=== PATIENT | male | born 1960 | race Caucasian/White ===

== ENCOUNTER 2022-08-22 12:57 | Outpatient (REF) | payer MEDICARE, SELFPAY ==
[2022-08-22 13:12] LABS: MANUAL DIFF FLAG NO
[2022-08-22 13:59] LABS: Basophils Absolute Auto 0.1 X10*3/uL (0.0-0.2); Basophils Percent Auto 0.9 % (0-2); Eosinophils Absolute Auto 0.4 X10*3/uL (0.0-0.4); Eosinophils Percent Auto 4.1 % (0-4); Hematocrit 41.4 % (42.0-52.0); Hemoglobin 13.4 g/dl (14.0-18.0); Imm Gran Abs Auto 0.04 X10*3/uL (0.00-0.03); Imm Gran Pct Auto 0.5 % (0.0-0.4); Lymphocytes Absolute Auto 2.2 X10*3/uL (1.2-4.9); Lymphocytes Percent Auto 25.6 % (20-40); Mean Corpuscular HGB Conc 32.4 g/dl (31.0-36.0); Mean Corpuscular Hemoglobin 27.2 pg (27.0-33.0); Mean Corpuscular Volume 84.1 fL (80.0-98.0); Mean Platelet Volume 9.9 fL (9.4-12.4); Monocytes Absolute Auto 0.5 X10*3/uL (0.1-1.2); Monocytes Percent Auto 6.1 % (2-11); Neutrophils Absolute Auto 5.3 x10*3/uL (2.0-8.3); Neutrophils Percent Auto 62.8 % (45-73); Platelet Count 271 X10*3/uL (160-400); Red Blood Count 4.92 X10*6/uL (4.60-5.80); Red Cell Distribution Width 14.9 % (11.0-16.0); White Blood Count 8.5 X10*3/uL (4.8-10.8)
[2022-08-22 14:18] LABS: Estimated Average Glucose 220 mg/dL; Hemoglobin A1c % 9.3 %
[2022-08-22 14:47] LABS: Creatinine Urine 100.11 mg/dL
[2022-08-22 14:55] LABS: Alanine Aminotransferase 11 U/L (0-40); Albumin Level 3.1 g/dL (3.5-5.0); Alkaline Phosphatase 97 U/L (39-117); Anion Gap 12 (12-20); Aspartate Amino Transferase 13 U/L (5-37); Bilirubin Total 0.4 mg/dL (0.0-1.0); Blood Urea Nitrogen 22 mg/dL (9-16); Calcium 8.5 mg/dL (8.4-10.2); Carbon Dioxide 25 mmol/L (22-29); Chloride 106 mmol/L (96-108); Cholesterol 150 mg/dL; Estimated Glomerular Filt Rate 27; Glucose Fasting 153 mg/dL (60-99); HDL Cholesterol 30 mg/dL; LDL Cholesterol Calculated 101 mg/dl; Potassium 4.1 mmol/L (3.3-5.1); Sodium 139 mmol/L (135-145); Total Protein 5.9 g/dL (6.5-8.0); Triglycerides 99 mg/dL
[2022-08-22 15:00] LABS: Microalbumin Urine > 2000.0 mg/L
[2022-08-22 15:05] LABS: Prostate Specific Antigen 0.27 ng/mL (<0.05-4.0)
== END 2022-08-22 12:58 | disposition home or self-care (01) ==
LOC: HO.LAB 12:57
PROVIDERS: PCP Internal Medicine; Visit Provider Nurse Practitioner Family
DX: E11.65 Type 2 diabetes mellitus with hyperglycemia (principal); Z12.5 Encounter for screening for malignant neoplasm of prostate
CPT/HCPCS: 36415; 80053; 80061; 82043; 83036; 84153; 84443; 85025

== ENCOUNTER 2022-10-08 12:27 | Outpatient (REF) | payer MEDICARE, SELFPAY ==
--- NOTE | ~2022-10-08 | MR_ITS ---
EXAMINATION: MR PELVIS WITHOUT CONTRAST CLINICAL INFORMATION: Lytic lesion. COMPARISON: Outside CT abdomen/pelvis dated 08/20/2022. TECHNIQUE: Multisequence MR imaging of the pelvis was obtained without contrast on a high-field strength scanner. Localizing images as well as coronal T1 and coronal STIR images were obtained. Examination was terminated prematurely due to claustrophobia. FINDINGS: Evaluation significantly limited due to premature termination and limited imaging. BONE: Previously seen lytic foci on the prior CT are difficult to visualize on the provided MR images. There is a single focus within the posterior aspect of the left iliac adjacent to the sacroiliac joint which is similar in size and demonstrates normal fat signal on T1 and STIR imaging. No marrow edema or increased fluid signal to suggest acute osseous injury. No stress reaction, fracture, or avascular necrosis. Severe right and [id number] left hip osteoarthritis. Multilevel degenerative disc disease and facet arthropathy partially visualized within the lumbar spine. MUSCLES/TENDONS: Grossly unremarkable. INTRAPELVIC STRUCTURES: Grossly unremarkable. SOFT TISSUES: No large soft tissue mass or fluid collection. MR/MR pelvis wo con IMPRESSION: Evaluation significantly limited due to premature termination and limited imaging. 1. Previously seen lytic foci on the prior CT are difficult to visualize on the provided MR images. There is a single focus within the posterior aspect of the left iliac adjacent to the sacroiliac joint which demonstrates normal fat signal. No marrow edema or increased fluid signal to suggest acute osseous injury. 2. Severe right and [id number] left hip osteoarthritis. 3. Multilevel degenerative disc disease and facet arthropathy partially visualized within the lumbar spine.
--- NOTE | ~2022-10-08 | XR_ITS ---
EXAMINATION: XR BILATERAL HIPS WITH AP PELVIS CLINICAL INFORMATION: Evaluate for lytic lesions COMPARISON: None available. TECHNIQUE: AP view of the pelvis and single views of each hip were obtained. FINDINGS: Evaluation is limited due to overlapping soft tissues. Severe degenerative changes of the bilateral hip joints, no evidence of fracture or dislocation. There is diffuse heterogeneous appearance of the osseous structures. Underlying lytic lesions cannot be excluded including a possible one in the inferior right pubic ramus measuring 3.3 cm. XR/XR hips BERTHA min 3V IMPRESSION: 1. Severe degenerative changes of the bilateral hip joints, no evidence of fracture or dislocation. 2. Diffuse heterogeneous appearance of the osseous structures. Underlying lytic lesions cannot be excluded including a possible one in the inferior right pubic ramus measuring 3.3 cm.
== END 2022-10-08 12:28 | disposition home or self-care (01) ==
LOC: HO.MRI 12:27
PROVIDERS: PCP Nurse Practitioner Family; Visit Provider Internal Medicine
DX: R93.5 Abnormal findings on diagnostic imaging of other abdominal regions, including retroperitoneum (principal)
CPT/HCPCS: 72195; 73522

== ENCOUNTER → 2022-11-03 12:53 | Outpatient (BNVA) | payer MEDICARE, SELFPAY | PROVIDERS: PCP Internal Medicine; Visit Provider Orthopaedic Surgery | DX: M54.16 Radiculopathy, lumbar region (principal); M16.0 Bilateral primary osteoarthritis of hip; M21.379 Foot drop, unspecified foot; E11.65 Type 2 diabetes mellitus with hyperglycemia | CPT/HCPCS: 99202 ==

== ENCOUNTER → 2022-11-25 14:48 | Outpatient (BNVA) | payer MEDICARE, SELFPAY | PROVIDERS: PCP Internal Medicine; Visit Provider Nurse Practitioner Family | DX: M21.379 Foot drop, unspecified foot (principal); M51.16 Intervertebral disc disorders with radiculopathy, lumbar region; M96.1 Postlaminectomy syndrome, not elsewhere classified; M16.0 Bilateral primary osteoarthritis of hip; G89.4 Chronic pain syndrome; E11.65 Type 2 diabetes mellitus with hyperglycemia; E11.40 Type 2 diabetes mellitus with diabetic neuropathy, unspecified; E11.22 Type 2 diabetes mellitus with diabetic chronic kidney disease; E11.21 Type 2 diabetes mellitus with diabetic nephropathy; N18.9 Chronic kidney disease, unspecified; G62.9 Polyneuropathy, unspecified; Z99.3 Dependence on wheelchair | CPT/HCPCS: 99202 ==

== ENCOUNTER 2023-08-31 12:40 | Outpatient (REF) | payer MEDICARE, SELFPAY ==
[2023-08-31 13:05] LABS: MANUAL DIFF FLAG NO
[2023-08-31 13:36] LABS: Basophils Absolute Auto 0.1 X10*3/uL (0.0-0.2); Basophils Percent Auto 1.1 % (0-2); Eosinophils Absolute Auto 0.5 X10*3/uL (0.0-0.4); Eosinophils Percent Auto 6.6 % (0-4); Hematocrit 39.4 % (42.0-52.0); Hemoglobin 13.2 g/dl (14.0-18.0); Imm Gran Abs Auto 0.03 X10*3/uL (0.00-0.03); Imm Gran Pct Auto 0.4 % (0.0-0.4); Immature Retic Fraction 4.2 % (2.3-13.4); Lymphocytes Absolute Auto 1.9 X10*3/uL (1.2-4.9); Lymphocytes Percent Auto 25.3 % (20-40); Mean Corpuscular HGB Conc 33.5 g/dl (31.0-36.0); Mean Corpuscular Hemoglobin 28.6 pg (27.0-33.0); Mean Corpuscular Volume 85.5 fL (80.0-98.0); Mean Platelet Volume 9.8 fL (9.4-12.4); Monocytes Absolute Auto 0.5 X10*3/uL (0.1-1.2); Monocytes Percent Auto 6.1 % (2-11); Neutrophils Absolute Auto 4.6 x10*3/uL (2.0-8.3); Neutrophils Percent Auto 60.5 % (45-73); Platelet Count 243 X10*3/uL (160-400); Red Blood Count 4.61 X10*6/uL (4.60-5.80); Red Cell Distribution Width 14.8 % (11.0-16.0); Retic HGB Equivalent 30.4 pg (30.0-35.0); Reticulocytes Absolute 0.044 X10*6/uL (0.026-0.095); White Blood Count 7.6 X10*3/uL (4.8-10.8)
[2023-08-31 14:21] LABS: Alanine Aminotransferase 9 U/L (0-40); Albumin Level 3.3 g/dL (3.5-5.0); Alkaline Phosphatase 113 U/L (39-117); Anion Gap 12 (12-20); Aspartate Amino Transferase 10 U/L (5-37); Bilirubin Total 0.4 mg/dL (0.0-1.0); Blood Urea Nitrogen 50 mg/dL (9-16); Calcium 8.9 mg/dL (8.4-10.2); Carbon Dioxide 24 mmol/L (22-29); Chloride 106 mmol/L (96-108); Cholesterol 170 mg/dL (<200); Estimated Glomerular Filt Rate 17; Glucose Random 113 mg/dL (60-115); HDL Cholesterol 33 mg/dL (>40); Iron 72 mcg/dL (45-160); LDL Cholesterol Calculated 115 mg/dL (<100); Percent Iron Saturation 45 % (15-50); Potassium 4.7 mmol/L (3.3-5.1); Sodium 137 mmol/L (135-145); Total Iron Binding Capacity 161 mcg/dL (228-428); Total Protein 7.1 g/dL (6.5-8.0); Triglycerides 112 mg/dL (<150); Unsaturated Iron Binding 89 ug/dL
[2023-08-31 14:40] LABS: Ferritin 186 ng/mL (20-250); Thyroid Stimulating Hormone 0.49 uIU/mL (0.32-4.0)
[2023-08-31 14:48] LABS: Folate 6.6 ng/mL (> or = 4.0); Prostate Specific Antigen Scr 0.33 ng/mL (<0.05-4.0); Vitamin B12 643 pg/mL (200-900)
[2023-08-31 14:51] LABS: Estimated Average Glucose 126 mg/dL
== END 2023-08-31 12:41 | disposition home or self-care (01) ==
LOC: HO.LAB 12:40
PROVIDERS: PCP Internal Medicine; Visit Provider Internal Medicine
DX: E11.65 Type 2 diabetes mellitus with hyperglycemia (principal); E78.00 Pure hypercholesterolemia, unspecified; E87.5 Hyperkalemia; Z12.5 Encounter for screening for malignant neoplasm of prostate
CPT/HCPCS: 36415; 80053; 80061; 82607; 82728; 82746; 83036; 83540; 84153; 84439; 84443; 85025; 85045

== ENCOUNTER 2023-09-09 14:22 | Outpatient (AMB) | payer MEDICARE, SELFPAY ==
--- NOTE | 2023-09-09 14:22 | MHC.PC.OV ---
Vital Signs 09/09/23 14:23 BP 153/87 H Comment BP taken at home Intake Visit Reasons: High BP, [employer] District Supervisor Required: No Allergies gabapentin Allergy (Unknown, Verified 04/29/23 11:47) confusion Medication List - Last Reconciled 09/09/23 by Jannette Ceja MD albuterol sulfate 90 mcg/actuation (ProAir HFA) 2 puffs inhalation Q4-6H PRN ammonium lactate 12% appl topical BID blood sugar diagnostic (FreeStyle Lite Strips) test daily blood-glucose meter (FreeStyle Lite Meter kit) test daily [CBD Gummy PO PRN] clotrimazole 1% 1 appl topical BID glipizide ER 5 mg PO DAILY lancets (FreeStyle Lancets) test daily nystatin 1 appl topical TID PRN omeprazole 20 mg PO DAILY [turkey tail mushroom PO .QD] Tobacco use date assessed: 12/09/22 Fall risk assessment: No Falls in past year Last assessed Fall Risk: 09/09/23 HPI High BP, HPI Details 63-year-old male smoker with a history of diabetes mellitus chronic kidney disease hypercholesterolemia post laminectomy syndrome having a footdrop coming in for follow-up through Telehealth. Last seen in November 2022 review of the notes patient did see the nurse practitioner in April 2023 for preoperative evaluation for cataract surgery. November 2022 noted ER visit for blood in the stool diagnosis of acute diarrhea and was treated with loperamide p.r.n. called EMT recently and was eating a bag of pistachios- felt light headed, R arm - slow motion and slurred noted BP high am 161/92 153/87 [facility] Medical History (Updated 09/09/23 @ 17:11 by Jannette Ceja MD) Wheelchair bound Lumbar radiculopathy Diabetic nephropathy Hypercholesterolemia Peripheral neuropathy Tobacco abuse Anxiety and depression Chronic kidney disease Type 2 diabetes mellitus with hyperglycemia Surgical History History of cervical spinal surgery History of lumbar surgery Family History Other Mental health disorder Substance use disorder Social History Household Members: Spouse and Family Housing: House Patient Tobacco Use Status: Current everyday Tobacco user Tobacco use type: Cigarette e-Cigarette/Vaping Use: Never Used Second Hand Smoke Exposure: No service: No Current occupational status: retired and disabled Cognitive needs: Yes (wheelchair) Hearing needs: No Vision needs: No Questionnaire Thrive Questionnaire Date Thrive assessed: 09/09/23 I am a: Patient What is your living situation today?: I have a steady place to live Within the past 12 months, did the food you bought not last and you didn't have the money to get more?: Never true Within the past 12 months, did you worry whether your food would run out before you got money to buy more?: Never true Do you have trouble paying for medicines?: No Do you have trouble getting transportation to medical appointments?: No Do you have trouble paying your heating and electricity bill?: No Do you have trouble taking care of your child, family member or friend?: No Do you have trouble with day-to-day activities such as bathing, preparing meals, shopping, managing finances, etc.?: No Are you currently unemployed and looking for a job?: No Are you interested in more education?: No Please select the resources that you would like help with: None THRIVE Score: 0 AUDIT C Alcohol Use Questionnaire (AUDIT-C) 1. How often do you have a drink containing alcohol?: Never 3. How often do you have six or more drinks on one occasion?: Never Total Score: 0 Score Reviewed/Action Taken: No ROXY-7 AMB Questionnaire ROXY-7 Date ROXY - 7 assessed: 09/09/23 Source: Developed by Drs. Jon Bone, Mary Morales, Josh Bond and colleagues, with an educational theodore from [email or web address]. Physical exam (Primary Care) Vital Signs: Last Vital Signs BP 153/87 H 09/09/23 14:23 Tobacco/Smoking Status: Tobacco use Status Tobacco use date assessed 12/09/22 09/09/23 14:25 Patient Tobacco Use Status Current everyday Tobacco 09/09/23 14:25 Tobacco use type Cigarette 09/09/23 14:25 e-Cigarette/Vaping Use Never Used 09/09/23 14:25 Thrive Assessment: Date of Thrive Assessment Date Thrive assessed 09/09/23 09/09/23 14:25 Telehealth Telehealth Location of provider rendering services: practice address Location of patient: address on file Patient Identification confirmed using: Name, : Yes Telehealth method: voice only (android ) Patient verbally consented to treatment: Yes Patient verbally consented to billing insurance company: Yes Patient informed of any privacy concerns related to visit: Yes Minutes spent on Phone/Video with Pt.: 25 Assessment and Plan Assessment & Plan (1) Type 2 diabetes mellitus with hyperglycemia: Code(s): E11.65 - Type 2 diabetes mellitus with hyperglycemia Qualifiers: Diabetes mellitus [facility] insulin use: without termite control service representative use Qualified Code(s): E11.65 - Type 2 diabetes mellitus with hyperglycemia Plan: Decrease the amount of carbohydrate intake, pasta, bread, rice and potatoes are all sugar and that is aside from all the sweet stuff, remember that fruits are good but they are Sweet also. Hemoglobin A1c goal of less than 6.5 patient is at goal on glipizide 5 mg once a day (2) Chronic kidney disease: Code(s): N18.9 - Chronic kidney disease, unspecified Qualifiers: Chronic kidney disease stage: unspecified stage Qualified Code(s): N18.9 - Chronic kidney disease, unspecified Plan: Patient has chronic kidney disease and advised to be followed up by Nephrology avoid NSAIDs keep well hydrated- has a schedule with Nephrology (3) Tobacco abuse: Code(s): Z72.0 - Tobacco use Plan: Patient is strongly advised to stop smoking! (4) Hypercholesterolemia: Code(s): E78.00 - Pure hypercholesterolemia, unspecified Plan: Avoid fried foods, chicken skin, eggs, butter margarine, pastries and meat. Be it pork or beef they have a lot of cholesterol LDL goal of less than 100 and triglyceride of less than 150 patient is not on any statin. Patient is advised to start on statins. Prescription sent (5) Post laminectomy syndrome: Code(s): M96.1 - Postlaminectomy syndrome, not elsewhere classified Plan: taking CBD gummy and helps (6) Hypertension: Code(s): I10 - Essential (primary) hypertension Plan: low saalt intake and will be seeing renal soon - [facility] nephrology Orders: Orders Lipid Panel 3 Months E11.65 - Type 2 diabetes mellitus with hyperglycemia, E78.00 - Pure hypercholesterolemia, unspecified Comprehensive Met. Panel 3 Months E11.65 - Type 2 diabetes mellitus with hyperglycemia Hemoglobin A1c 3 Months E11.65 - Type 2 diabetes mellitus with hyperglycemia Medications: New atorvastatin 10 mg PO DAILY 30 tabs 5RF E1165 - Type 2 diabetes mellitus with hyperglycemia Coding Level of Care Code Tele Est Pt Level 4 (30917) Diagnoses Type 2 diabetes mellitus with hyperglycemia, without long-term current use of insulin Diabetes mellitus [facility] insulin use: without termite control service representative use Chronic kidney disease, unspecified CKD stage N18.9 Chronic kidney disease stage: unspecified stage Tobacco abuse Z72.0 Hypercholesterolemia E78.00 Post laminectomy syndrome M96.1 Hypertension I10
[2023-09-09 14:23] VITALS: BP 153/87
== END 2023-09-09 17:44 | disposition home or self-care (01) ==
LOC: HO.HMGH 14:22
PROVIDERS: PCP Internal Medicine; Visit Provider Internal Medicine
DX: I12.9 Hypertensive chronic kidney disease with stage 1 through stage 4 chronic kidney disease, or unspecified chronic kidney disease (principal); E11.65 Type 2 diabetes mellitus with hyperglycemia; N18.9 Chronic kidney disease, unspecified; Z72.0 Tobacco use; E78.00 Pure hypercholesterolemia, unspecified; M96.1 Postlaminectomy syndrome, not elsewhere classified
CPT/HCPCS: 99443

== ENCOUNTER 2023-12-30 13:28 | Outpatient (AMB) | payer MEDICARE, SELFPAY ==
[2023-12-30 13:30] VITALS: BP 134/76; PULSE 77; O2SAT 97
--- NOTE | 2023-12-30 13:30 | A.OFFPC_ITS ---
Vital Signs 12/30/23 13:30 Height 6 ft 3 in BMI Reason not done Patient refused/unable BP 134/76 Blood Pressure Location Lt brachial Position Sitting Pulse 77 Pulse Source Pulse Oximeter Pulse Oximetry (%) 97 Oxygen Delivery Method Room Air Intake Visit Reasons: cataract surgery 01/10 and 01/24 [facility] Allergies gabapentin Allergy (Unknown, Verified 12/30/23 13:30) confusion Medication List - Last Reconciled 12/30/23 by Jannette Ceja MD albuterol sulfate 90 mcg/actuation (ProAir HFA) 2 puffs inhalation Q4-6H PRN ammonium lactate 12% appl topical BID atorvastatin 10 mg PO DAILY blood sugar diagnostic (FreeStyle Lite Strips) test daily blood-glucose meter (FreeStyle Lite Meter kit) test daily [CBD Gummy PO PRN] clotrimazole 1% 1 appl topical BID lancets (FreeStyle Lancets) test daily nystatin 1 appl topical TID PRN omeprazole 20 mg PO DAILY [turkey tail mushroom PO .QD] Tobacco use date assessed: 12/30/23 Fall risk assessment: No Falls in past year Last assessed Fall Risk: 12/30/23 Dental Screening Dental Screen Date: 12/30/23 Did you have a dental visit in the last 12 months?: No Did you have a dental problem in the last 6 months where you did not have access to dental care?: No Was dental information given to patient?: No HPI cataract surgery 01/10 and 01/24 [facility] HPI Details 63-year-old male smoker wheelchair born having diabetes mellitus chronic kidney disease hypercholesterolemia history of post laminectomy syndrome and hypertension. Patient is going to have cataract surgery. PAtient is wheelchair born and moves only to transfer from [facility] wheelchair. Patient has been referred to Nephrology but has not seen there lubrication equipment servicer 1st since having hard time going there. [facility] Medical History (Updated 12/30/23 @ 14:01 by Jannette Ceja MD) Wheelchair bound Lumbar radiculopathy Diabetic nephropathy Hypercholesterolemia Peripheral neuropathy Tobacco abuse Anxiety and depression Chronic kidney disease Type 2 diabetes mellitus with hyperglycemia Surgical History History of cervical spinal surgery History of lumbar surgery Family History Other Mental health disorder Substance use disorder Social History (Updated 12/30/23 @ 13:55 by Jannette Ceja MD) Household Members: Spouse and Family Housing: House Patient Tobacco Use Status: Current everyday Tobacco user Tobacco use type: Cigarette Cigarette Packs Per Day: 1 Years Smoked: 1969 e-Cigarette/Vaping Use: Never Used Second Hand Smoke Exposure: No service: No Current occupational status: retired and disabled Cognitive needs: Yes (wheelchair) Hearing needs: No Vision needs: No Questionnaire PHQ-9 Over the last 2 weeks, how often have you been bothered by any of the following problems? 1. Little interest or pleasure in doing things: not at all 2. Feeling down, depressed, or hopeless: not at all 3. Trouble falling or staying asleep, or sleeping too much: not at all 4. Feeling tired or having little energy: not at all 5. Poor appetite or overeating: not at all 6. Feeling bad about yourself - or that you are a failure or have let yourself or your family down: not at all 7. Trouble concentrating on things, such as reading the newspaper or watching television: not at all 8. Moving or speaking so slowly that other people could have noticed. Or the opposite - being so fidgety or restless that you have been moving around a lot more than usual: not at all 9. Thoughts that you would be better off or of hurting yourself in some way: not at all Total score: 0 Depression Screening Interpretation: Negative Depression Screening Done: Yes 66192 - PHQ-9 Billing: Yes Source: Developed by Drs. Jon Bone, Josh Koch and colleagues, with an educational theodore from [employer]. Thrive Questionnaire Date Thrive assessed: 09/09/23 AUDIT C Alcohol Use Questionnaire (AUDIT-C) 1. How often do you have a drink containing alcohol?: Never 3. How often do you have six or more drinks on one occasion?: Never Total Score: 0 Score Reviewed/Action Taken: No ROXY-7 AMB Questionnaire ROXY-7 Date ROXY - 7 assessed: 09/09/23 Source: Developed by Drs. Jon Bone, Josh Koch and colleagues, with an educational theodore from [employer]. Review of Systems Const Denies poor appetite and Denies weakness Eyes Denies no additional complaints ENT Reports Normal hearing present, Denies dizziness, Denies nasal congestion, Denies tinnitus and Denies sore throat Card Denies chest pain, Denies syncope, Denies rapid heart rate and Denies dyspnea Resp Denies cough and Denies dyspnea GI Denies change in stool character, Reports constipation, Denies diarrhea, Denies nausea and Denies vomiting Denies dysuria and Denies urinary frequency Neuro Reports Normal hearing present, Denies confusion, Denies dizziness, Denies syncope and Denies weakness Psych Denies confusion Physical exam (Primary Care) Vital Signs: Last Vital Signs Pulse 77 12/30/23 13:30 BP 134/76 12/30/23 13:30 Pulse Ox 97 12/30/23 13:30 Oxygen Delivery Method Room Air 12/30/23 13:30 Tobacco/Smoking Status: Tobacco use Status Tobacco use date assessed 12/30/23 12/30/23 13:32 Patient Tobacco Use Status Current everyday Tobacco 12/30/23 13:32 Tobacco use type Cigarette 12/30/23 13:32 e-Cigarette/Vaping Use Never Used 12/30/23 13:32 PHQ-9: PHQ-9 Score PHQ-9: Total score 0 12/30/23 13:46 Depression Screening Interpretation: Negative Thrive Assessment: Date of Thrive Assessment Date Thrive assessed 09/09/23 12/30/23 13:32 Const General: alert; No acute distress or confusion Orientation/consciousness: No confusion Eyes Conjunctivae: conjunctivae normal Resp Auscultation: clear to auscultation bilaterally Cardio Rate: regular rate Rhythm: regular rhythm GI Inspection: Yes normal to inspection Neuro General: No confusion Cranial nerves: Yes Normal hearing present Extrem General: Yes normal to inspection and No edema Results AMB Hemoglobin A1c AMB Hemoglobin A1c 6.2 % Last Edit by Steph Corbin CMA on 12/30/23 13 :47 Assessment and Plan Assessment & Plan (1) Preop exam for internal medicine: Code(s): Z01.818 - Encounter for other preprocedural examination Plan: With the patient's activity limited will do risk stratification with Cardiology. Referral done advised to get EKG as well as blood work. With the diabetes patient is in the intermediate risk category. (2) Post laminectomy syndrome: Code(s): M96.1 - Postlaminectomy syndrome, not elsewhere classified Plan: Wheelchair born (3) Type 2 diabetes mellitus with hyperglycemia: Code(s): E11.65 - Type 2 diabetes mellitus with hyperglycemia Qualifiers: Diabetes mellitus intermediate card tender insulin use: without intermediate card tender use Qualified Code(s): E11.65 - Type 2 diabetes mellitus with hyperglycemia Plan: Decrease the amount of carbohydrate intake, pasta, bread, rice and potatoes are all sugar and that is aside from all the sweet stuff, remember that fruits are good but they are Sweet also. Hemoglobin A1c goal of less than 6.5. Diet control (4) Tobacco abuse: Code(s): Z72.0 - Tobacco use Plan: Patient is strongly advised to stop smoking! (5) Hypercholesterolemia: Code(s): E78.00 - Pure hypercholesterolemia, unspecified Plan: Avoid fried foods, chicken skin, eggs, butter margarine, pastries and meat. Be it pork or beef they have a lot of cholesterol LDL goal of less than 100 and triglyceride of less than 150. On atorvastatin 10 mg once a day (6) Preop cardiovascular exam: Code(s): Z01.810 - Encounter for preprocedural cardiovascular examination Plan: Referral to cardiology done (7) Chronic kidney disease: Code(s): N18.9 - Chronic kidney disease, unspecified Qualifiers: Chronic kidney disease stage: unspecified stage Qualified Code(s): N18.9 - Chronic kidney disease, unspecified Plan: Patient is referred to Nephrology Orders: Orders AMB Hemoglobin A1c Today Z13.9 - Encounter for screening, unspecified Basic Metabolic Panel Today Z01.810 - Encounter for preprocedural cardiovascular examination Complete Blood Count Auto Diff Today Z01.810 - Encounter for preprocedural cardiovascular examination ECG 12 lead EKG Today Z01.810 - Encounter for preprocedural cardiovascular examination Referrals Lung Cancer Screening Referral Z72.0 - Tobacco use Cardiology Referral Z.810 - Encounter for preprocedural cardiovascular examination Nephrology Referral N18.9 - Chronic kidney disease, unspecified Coding Level of Care Code Est Pt Level 4 (97127) Diagnoses Preop exam for internal medicine Z01.818 Post laminectomy syndrome M96.1 Type 2 diabetes mellitus with hyperglycemia, without long-term current use of insulin E11.65 Diabetes mellitus intermediate card tender insulin use: without group home use Tobacco abuse Z72.0 Hypercholesterolemia E78.00 Preop cardiovascular exam Z01.810 Chronic kidney disease, unspecified CKD stage N18.9 Chronic kidney disease stage: unspecified stage
== END 2023-12-30 14:13 | disposition home or self-care (01) ==
PROVIDERS: PCP Internal Medicine; Visit Provider Internal Medicine
DX: E11.65 Type 2 diabetes mellitus with hyperglycemia (principal)
CPT/HCPCS: 83036; 99214

== ENCOUNTER → 2023-12-30 14:24 | Outpatient (REF) | payer MEDICARE, SELFPAY ==
--- NOTE | 2023-12-30 14:34 | ECG_ITS ---
Test Reason : PREOP Blood Pressure : / mmHG Vent. Rate : 096 BPM Atrial Rate : 096 BPM P-R Int : 136 ms QRS Dur : 080 ms QT Int : 348 ms P-R-T Axes : 082 067 074 degrees QTc Int : 439 ms Normal sinus rhythm Normal ECG No previous ECGs available Referred By: Jannette Ceja Electronically Signed By:GRACE KELSEY MD
[2023-12-30 15:02] LABS: MANUAL DIFF FLAG NO
[2023-12-30 15:24] LABS: Basophils Absolute Auto 0.1 X10*3/uL (0.0-0.2); Basophils Percent Auto 0.9 % (0-2); Eosinophils Absolute Auto 0.4 X10*3/uL (0.0-0.4); Eosinophils Percent Auto 4.8 % (0-4); Hemoglobin 11.5 g/dl (14.0-18.0); Imm Gran Abs Auto 0.02 X10*3/uL (0.00-0.03); Imm Gran Pct Auto 0.3 % (0.0-0.4); Lymphocytes Absolute Auto 1.5 X10*3/uL (1.2-4.9); Lymphocytes Percent Auto 20.2 % (20-40); Mean Corpuscular HGB Conc 31.9 g/dl (31.0-36.0); Mean Corpuscular Hemoglobin 27.5 pg (27.0-33.0); Mean Corpuscular Volume 86.1 fL (80.0-98.0); Mean Platelet Volume 9.5 fL (9.4-12.4); Monocytes Absolute Auto 0.5 X10*3/uL (0.1-1.2); Monocytes Percent Auto 6.7 % (2-11); Neutrophils Percent Auto 67.1 % (45-73); Platelet Count 280 X10*3/uL (160-400); Red Blood Count 4.18 X10*6/uL (4.60-5.80); Red Cell Distribution Width 15.1 % (11.0-16.0); White Blood Count 7.5 X10*3/uL (4.8-10.8)
[2023-12-30 15:36] LABS: Estimated Average Glucose 128 mg/dL; Hemoglobin A1c % 6.1 % (<6.0)
[2023-12-30 15:57] LABS: Anion Gap 14 (12-20); Blood Urea Nitrogen 52 mg/dL (9-16); Calcium 8.9 mg/dL (8.4-10.2); Carbon Dioxide 24 mmol/L (22-29); Chloride 106 mmol/L (96-108); Glucose Random 190 mg/dL (60-115); Potassium 5.2 mmol/L (3.3-5.1); Sodium 139 mmol/L (135-145)
[2023-12-30 16:00] LABS: Estimated Glomerular Filt Rate 15
== END ==
LOC: HO.CARD 14:24
PROVIDERS: PCP Internal Medicine; Visit Provider Internal Medicine
DX: Z01.810 Encounter for preprocedural cardiovascular examination (principal); E11.65 Type 2 diabetes mellitus with hyperglycemia
CPT/HCPCS: 36415; 80048; 83036; 85025; 93005

== ENCOUNTER → 2023-12-30 14:34 | Outpatient (BNV) | payer MEDICARE, SELFPAY | PROVIDERS: PCP Internal Medicine; Visit Provider Internal Medicine Cardiovascular Disease | DX: I10 Essential (primary) hypertension (principal); Z01.810 Encounter for preprocedural cardiovascular examination | CPT/HCPCS: 93010 ==

== ENCOUNTER 2024-01-11 08:49 | Day surgery (SDC) | payer MEDICARE, SELFPAY ==
[2024-01-07 10:06] VITALS: BMI 30.6
--- NOTE | 2024-01-11 09:58 | P.CONAN_ITS ---
[facility] Active Problems Active Problems: All Active Problems (Updated 01/07/24 @ 09:59 by Lissette Gonzales, RN) Preop cardiovascular exam (Acute) Hypertension (Acute) Asthmatic bronchitis (Acute) Allergic rhinitis (Acute) Chronic pain syndrome (Acute) Bilateral hip pain (Acute) Post laminectomy syndrome (Acute) Foot drop (Acute) Peripheral vascular disease (Acute) Lumbar degenerative disc disease (Acute) Hyperkalemia (Acute) Bilateral primary osteoarthritis of hip (Acute) Asthma (Acute) Preop exam for internal medicine (Acute) Microalbuminuria (Acute) Diarrhea (Acute) Screening for prostate cancer (Acute) Rash (Acute) Skin cyst (Acute) Abnormal abdominal CT scan (Acute) Toenail fungus (Acute) Peripheral neuropathy (Acute) Lumbar radiculopathy (Acute) Diabetic nephropathy (Acute) Hypercholesterolemia (Acute) Tobacco abuse (Acute) Anxiety and depression (Acute) Chronic kidney disease (Acute) Type 2 diabetes mellitus with hyperglycemia (Acute) Past Medical History Medical History Smoker (~1970) Seasonal allergies Bilateral cataracts Wheelchair bound Lumbar radiculopathy Diabetic nephropathy Hypercholesterolemia Peripheral neuropathy Tobacco abuse Anxiety and depression Chronic kidney disease Type 2 diabetes mellitus with hyperglycemia Family History Family History Other Mental health disorder Substance use disorder Surgical History Surgical History Hx of colonoscopy History of cervical spinal surgery History of lumbar surgery History of Problems with Anesthesia: No Social History Social History Household Members: Spouse and Family Housing: House Are you a primary home health care case manager to a significant other at home: No Do you presently have visiting nurse or other home services: No Comment: can stand and pivot Patient Tobacco Use Status: Current everyday Tobacco user Tobacco use type: Cigarette Cigarette Packs Per Day: 1 Cigarettes Per Day: 20.0 Years Smoked: 1970 Smoked in Last 30 Days: Yes e-Cigarette/Vaping Use: Never Used Second Hand Smoke Exposure: No Use of substances other than those prescribed or required for medical reasons: Yes Substance Use Type Other:: CBD gummies Substance Use Frequency: Daily Have you been hit, kicked, punched, or otherwise hurt by someone within the past year? If so, by whom?: No Are you DNR?: No Advance Directives: No Advance Directives Information Provided: Yes Advance Directives on File: No Recently lost weight without trying: No service: No Current occupational status: retired and disabled Cognitive needs: Yes (wheelchair) Hearing needs: No Vision needs: No Meds Allergies Allergy/AdvReac Type Severity Reaction Status Date / Time gabapentin Allergy Unknown confusion Verified 01/07/24 10:13 Home Medications ?Medication ?Instructions ?Recorded ?Confirmed ?Last Taken ?Type clotrimazole 1 % topical cream 1 appl topical BID 08/21/22 12/30/23 Unknown History ammonium lactate 12 % topical cream appl topical BID 11/25/22 12/30/23 Unknown History CBD Gummy PO DAILY PRN leg pain 09/09/23 12/30/23 Unknown History turkey tail mushroom PO .QD 09/09/23 12/30/23 Unknown History Exam Height,Weight and Vital Signs: Height 6 ft 3 in Weight 111.13 kg Airway Mallampati Class: II (edentulous) TM Dist: >3cm Neck ROM: Full Loose/Missing/Broken Teeth: Yes, Upper and Lower Heart: RRR Lungs: CTA Assessment and Plan Assessment Anesthesia Assessment: Anesthesia Plan Discussed and Chart Reviewed Final Anesthetic Review History of Problems with Anesthesia: No NPO: Yes ASA Class: III Final Preanesthetic Review: Meds/Allgs Chart Reviewed, Consent Obtained/Reviewed and Anes Risks/Benef Reviewed Patient Risk: Intermediate Procedure Risk: Low Anesthetic Plan Anesthetic Plan: MAC: Disposition: Standard PACU
[2024-01-11 10:13] LABS: Glucose, Whole Blood 102 mg/dL (60-115)
[2024-01-11 10:14] VITALS: BMI 30.4
[2024-01-11] MEDS: Tetracaine HCl/PF 0.5% Oph Sol 4 ML DROPS 1 DROP EYE-LEFT (10:14)
[2024-01-11] MEDS: Cyclopentolate 1 % Ophth Sol 2 ML DRPBTL 1 DROP EYE-LEFT ×3 (10:17→10:42)
[2024-01-11] MEDS: Tropicamide 1 % Ophth Sol 3 ML BTL 1 DROP EYE-LEFT ×3 (10:19→10:44)
[2024-01-11] MEDS: Ketorolac Tromethamine 0.5% Op 10 ML DROPS 1 DROP EYE-LEFT ×3 (10:21→10:46)
[2024-01-11] MEDS: Phenylephrine HCL 2.5% Oph SoL 2 ML BOTTLE 1 DROP EYE-LEFT ×3 (10:23→10:49)
[2024-01-11 10:39] VITALS: BP 172/94; PULSE 88; RESP 16; TEMP 37; O2SAT 99
--- NOTE | 2024-01-11 10:56 | MHC.SHP ---
Pre-Procedural Eval Section A - 24 Hr Update-Section A only Date of Service: 01/11/24 The patient is an INPATIENT: No Changes since office visit: No Cold of Flu in the past 2 weeks, No New Medical Problems, No Changes in Medication and No Patient answered all questions The patient has been examined within 24 hours of the surgical procedure. The History & Physical has been completed within 30 days and I have reviewed it.: Yes Section B - Complete if H&P > 30 days Chief Complaint: Age-related nuclear cataract, left eye Allergies: Allergies Allergy/AdvReac Type Severity Reaction Status Date / Time gabapentin Allergy Unknown confusion Verified 01/07/24 10:13 Plan Diagnosis/Plan: Unchanged I have reviewed the history and physical and performed a pertinent physical examination on my patient. No changes have occurred unless specified. Time Spent With Patient Time: Total time managing care of this patient today ____ minutes.
--- NOTE | 2024-01-11 10:57 | HO.PNOPHT ---
Ophthalmology Procedure Procedure Date of Service: 01/11/24 Ophthalmology Viscoelastic: Healon Duet Dual Pack Pro Ophthalmology Lenses: IOL Acrysof MP - MA60AC (21.5) Procedure Notes: PREOPERATIVE DIAGNOSIS: Decreased visual acuity left eye secondary to cataract POSTOPERATIVE DIAGNOSIS: Same PROCEDURE: Left cataract extraction with intraocular lens insertion SURGEON: John Castillo M.D. ANESTHESIA: Topical/MAC ESTIMATED BLOOD LOSS: None COMPLICATIONS: None After obtaining informed consent, the patient was brought to the operation room suite and placed in the supine position. After adequate sedation per anesthesia, topical drops of Tetracaine were given to the left eye. The eye was then prepped and draped in the usual sterile fashion. The operating room microscope was then positioned over the operative eye and a lid speculum placed. A paracentesis was created. Viscoelastic was then instilled into the anterior chamber. A three plane incision was then created temporally, utilizing a 2.85 mm keratome. Capsulotomy forceps were then utilized to create a circular tear capsulotomy. Hydrodissection and hydrodelineation were carried out until adequate mobilization of the nucleus occurred. Phacoemulsification was then utilized to remove the dense central nucleus followed by removal of the cortical material utilizing the automated aspiration irrigation unit. Viscoat elastic was instilled into the posterior capsular bag followed by placement of a posterior chamber intraocular lens without difficulty. The residual Viscoat elastic was then removed utilizing the automated IA machine. The wound was check and found to be watertight. The patient tolerated the procedure well and the lid speculum was removed. Intracameral injection of Vigamox 0.1 mL followed by a subtenon injection of Kenalog-40 0.2 mL were administered. The patient will be seen in the a.m.
[2024-01-11 11:23] VITALS: BP 130/69; PULSE 79; RESP 18; TEMP 36.8; O2SAT 100
== END 2024-01-11 11:29 | disposition home or self-care (01) ==
PROVIDERS: PCP Internal Medicine; Visit Provider Ophthalmology
PROC: (CPT 66985; principal; 2024-01-11 10:50)
DX: H25.12 Age-related nuclear cataract, left eye (principal); H54.7 Unspecified visual loss; H18.413 Arcus senilis, bilateral; H11.153 Pinguecula, bilateral; I12.9 Hypertensive chronic kidney disease with stage 1 through stage 4 chronic kidney disease, or unspecified chronic kidney disease; E11.22 Type 2 diabetes mellitus with diabetic chronic kidney disease; N18.9 Chronic kidney disease, unspecified; E11.65 Type 2 diabetes mellitus with hyperglycemia; E78.00 Pure hypercholesterolemia, unspecified; Z99.3 Dependence on wheelchair; M96.1 Postlaminectomy syndrome, not elsewhere classified; Z79.899 Other long term (current) drug therapy; Z98.890 Other specified postprocedural states; F17.210 Nicotine dependence, cigarettes, uncomplicated
CPT/HCPCS: 66984; 82947; J2250; J3010; J3301; V2630

== ENCOUNTER 2024-01-25 09:53 | Day surgery (SDC) | payer MEDICARE, SELFPAY ==
[2024-01-07 10:16] VITALS: BMI 30.6
--- NOTE | 2024-01-22 10:27 | P.CONAN_ITS ---
Documented by User: Noa Ramos NP 01/22/24 10:29 HPI - Anesthesia Eval Consult details Narrative: 63yo M for Right Cataract Extraction IOL Insertion Left eye 01/11/24: Fent 49, Midaz 2 CKD with creat of 4. PCP aware and ok to proceed. PMF Active Problems Active Problems: All Active Problems Peripheral vascular disease (Acute) Hypertension (Acute) Hypercholesterolemia (Acute) Type 2 diabetes mellitus with hyperglycemia (Acute) Chronic kidney disease (Acute) Diabetic nephropathy (Acute) Peripheral neuropathy (Acute) Asthma (Acute) Asthmatic bronchitis (Acute) Allergic rhinitis (Acute) Nicotine dependence, cigarettes, uncomplicated (Acute) Anxiety and depression (Acute) Post laminectomy syndrome (Acute) Chronic pain syndrome (Acute) Bilateral hip pain (Acute) Foot drop (Acute) Lumbar degenerative disc disease (Acute) Lumbar radiculopathy (Acute) Bilateral primary osteoarthritis of hip (Acute) Hyperkalemia (Acute) Microalbuminuria (Acute) Diarrhea (Acute) Rash (Acute) Skin cyst (Acute) Abnormal abdominal CT scan (Acute) Toenail fungus (Acute) Past Medical History Medical History Wheelchair bound Chronic pain syndrome Post laminectomy syndrome Hypertension Hypercholesterolemia Type 2 diabetes mellitus with hyperglycemia Chronic kidney disease Diabetic nephropathy Peripheral neuropathy Seasonal allergies Nicotine dependence, cigarettes, uncomplicated Anxiety and depression Bilateral cataracts Family History Family History Other Mental health disorder Substance use disorder Surgical History Surgical History History of cataract surgery History of colonoscopy History of cervical spinal surgery History of lumbar surgery History of Problems with Anesthesia: No Social History Social History Household Members: Spouse and Family Housing: House Are you a primary patient care provider to a significant other at home: No Do you presently have visiting nurse or other home services: No Comment: can stand and pivot Patient Tobacco Use Status: Current everyday Tobacco user Tobacco use type: Cigarette Cigarette Packs Per Day: 1 Cigarettes Per Day: 20.0 Years Smoked: 1970 Smoked in Last 30 Days: Yes e-Cigarette/Vaping Use: Never Used Second Hand Smoke Exposure: No Use of substances other than those prescribed or required for medical reasons: Yes Substance Use Type Other:: CBD gummies Have you been hit, kicked, punched, or otherwise hurt by someone within the past year? If so, by whom?: No Are you DNR?: No Advance Directives: No Advance Directives Information Provided: Yes Advance Directives on File: No Recently lost weight without trying: No Nutrition Risks: No Nutritional Risk service: No Current occupational status: retired and disabled Cognitive needs: Yes (wheelchair) Hearing needs: No Vision needs: No Meds Allergies Allergy/AdvReac Type Severity Reaction Status Date / Time gabapentin Allergy Unknown confusion Verified 01/07/24 10:13 Home Medications ?Medication ?Instructions ?Recorded ?Confirmed ?Last Taken ?Type clotrimazole 1 % topical cream 1 appl topical BID 08/21/22 12/30/23 Unknown History ammonium lactate 12 % topical cream appl topical BID 11/25/22 12/30/23 Unknown History CBD Gummy PO DAILY PRN leg pain 09/09/23 12/30/23 Unknown History turkey tail mushroom PO .QD 09/09/23 12/30/23 Unknown History Exam Height,Weight and Vital Signs: Height 6 ft 3 in Weight 111.13 kg Assessment and Plan Assessment Anesthesia Assessment: Chart Reviewed Final Anesthetic Review History of Problems with Anesthesia: No Documented by User: Vero Ibrahim MD 01/25/24 11:59 [facility] Past Medical History Medical History Wheelchair bound Chronic pain syndrome Post laminectomy syndrome Hypertension Hypercholesterolemia Type 2 diabetes mellitus with hyperglycemia Chronic kidney disease Diabetic nephropathy Peripheral neuropathy Seasonal allergies Nicotine dependence, cigarettes, uncomplicated Anxiety and depression Bilateral cataracts Family History Family History Other Mental health disorder Substance use disorder Surgical History Surgical History History of cataract surgery History of colonoscopy History of cervical spinal surgery History of lumbar surgery Social History Social History Household Members: Spouse and Family Housing: House Are you a primary patient care provider to a significant other at home: No Do you presently have visiting nurse or other home services: No Comment: can stand and pivot Patient Tobacco Use Status: Current everyday Tobacco user Tobacco use type: Cigarette Cigarette Packs Per Day: 1 Cigarettes Per Day: 20.0 Years Smoked: 1970 Smoked in Last 30 Days: Yes e-Cigarette/Vaping Use: Never Used Second Hand Smoke Exposure: No Use of substances other than those prescribed or required for medical reasons: Yes Substance Use Type Other:: CBD gummies Have you been hit, kicked, punched, or otherwise hurt by someone within the past year? If so, by whom?: No Are you DNR?: No Advance Directives: No Advance Directives Information Provided: Yes Advance Directives on File: No Recently lost weight without trying: No Nutrition Risks: No Nutritional Risk service: No Current occupational status: retired and disabled Cognitive needs: Yes (wheelchair) Hearing needs: No Vision needs: No Meds Allergies Allergy/AdvReac Type Severity Reaction Status Date / Time gabapentin Allergy Unknown confusion Verified 01/07/24 10:13 Home Medications ?Medication ?Instructions ?Recorded ?Confirmed ?Last Taken ?Type clotrimazole 1 % topical cream 1 appl topical BID 08/21/22 12/30/23 Unknown Hi story ammonium lactate 12 % topical cream appl topical BID 11/25/22 12/30/23 Unknown History CBD Gummy PO DAILY PRN leg pain 09/09/23 12/30/23 Unknown History turkey tail mushroom PO .QD 09/09/23 12/30/23 Unknown History Exam Airway Mallampati Class: II TM Dist: >3cm Loose/Missing/Broken Teeth: Yes, Upper and Lower Heart: RRR Lungs: CTA Assessment and Plan Assessment Anesthesia Assessment: Anesthesia Plan Discussed Final Anesthetic Review NPO: Yes ASA Class: III Final Preanesthetic Review: Meds/Allgs Chart Reviewed, Consent Obtained/Reviewed and Anes Risks/Benef Reviewed Patient Risk: Intermediate Procedure Risk: Low Anesthetic Plan Anesthetic Plan: MAC: Disposition: Standard PACU
[2024-01-25 11:23] VITALS: BP 178/89; PULSE 105; RESP 18; TEMP 36.1; O2SAT 96
[2024-01-25] MEDS: Albuterol Sulfate (0.083%) 2.5 MG/3 ML VIAL.NEB INHALE (11:32)
[2024-01-25] MEDS: Lactated Ringers 500 ML 50 ML IV (11:32)
[2024-01-25 11:50] LABS: Glucose, Whole Blood 108 mg/dL (60-115)
--- NOTE | 2024-01-25 12:30 | MHC.SHP ---
Pre-Procedural Eval Section A - 24 Hr Update-Section A only Date of Service: 01/25/24 The patient is an INPATIENT: No Changes since office visit: No Cold of Flu in the past 2 weeks, No New Medical Problems, No Changes in Medication and No Patient answered all questions The patient has been examined within 24 hours of the surgical procedure. The History & Physical has been completed within 30 days and I have reviewed it.: Yes Section B - Complete if H&P > 30 days Chief Complaint: Age-related nuclear cataract, right eye Allergies: Allergies Allergy/AdvReac Type Severity Reaction Status Date / Time gabapentin Allergy Unknown confusion Verified 01/07/24 10:13 Plan Diagnosis/Plan: Unchanged I have reviewed the history and physical and performed a pertinent physical examination on my patient. No changes have occurred unless specified. Time Spent With Patient Time: Total time managing care of this patient today ____ minutes.
--- NOTE | 2024-01-25 12:31 | P.PCNO_ITS ---
Ophthalmology Procedure Procedure Date of Service: 01/25/24 Ophthalmology Viscoelastic: Healon Duet Dual Pack Pro Ophthalmology Lenses: IOL Acrysof MP - MA60AC (22) Procedure Notes: PREOPERATIVE DIAGNOSIS: Decreased visual acuity right eye secondary to cataract POSTOPERATIVE DIAGNOSIS: Same PROCEDURE: Right cataract extraction with intraocular lens insertion SURGEON: John Castillo M.D. ANESTHESIA: Topical/MAC ESTIMATED BLOOD LOSS: None COMPLICATIONS: None After obtaining informed consent, the patient was brought to the operating room suite and placed in the supine position. After adequate sedation per anesthesia, topical drops of Tetracaine were given to the right eye. The eye was then prepped and draped in the usual sterile fashion. The operating room microscope was then positioned over the operative eye and a lid speculum placed. A paracentesis was created. Viscoelastic was then instilled into the anterior chamber. A three plane incision was then created temporally, utilizing a 2.85 mm keratome. Capsulotomy forceps were then utilized to create a circular tear capsulotomy. Hydrodissection and hydrodelineation were carried out until adequate mobilization of the nucleus occurred. Phacoemulsification was then utilized to remove the dense central nucl eus followed by removal of the cortical material utilizing the automated aspiration irrigation unit. Viscoelastic was instilled into the posterior capsular bag followed by placement of a posterior chamber intraocular lens without difficulty. The residual Viscoelastic was then removed utilizing the automated IA machine. The wound was checked and found to be watertight. The patient tolerated the procedure well and the lid speculum was removed. Intracameral injection of Vigamox 0.1 mL followed by a subtenon injection of Kenalog-40 0.2 mL were administered. The patient will be seen in the a.m.
[2024-01-25 13:05] VITALS: BP 143/92; PULSE 113; RESP 16; TEMP 36.2; O2SAT 98
== END 2024-01-25 13:07 | disposition home or self-care (01) ==
PROVIDERS: PCP Internal Medicine; Visit Provider Ophthalmology
PROC: (CPT 66985; principal; 2024-01-25 11:40)
DX: H25.11 Age-related nuclear cataract, right eye (principal); H54.7 Unspecified visual loss; H18.413 Arcus senilis, bilateral; H11.153 Pinguecula, bilateral; H25.043 Posterior subcapsular polar age-related cataract, bilateral; E11.22 Type 2 diabetes mellitus with diabetic chronic kidney disease; I12.9 Hypertensive chronic kidney disease with stage 1 through stage 4 chronic kidney disease, or unspecified chronic kidney disease; N18.9 Chronic kidney disease, unspecified; E11.65 Type 2 diabetes mellitus with hyperglycemia; E11.21 Type 2 diabetes mellitus with diabetic nephropathy; G62.9 Polyneuropathy, unspecified; E78.00 Pure hypercholesterolemia, unspecified; M96.1 Postlaminectomy syndrome, not elsewhere classified; Z79.4 Long term (current) use of insulin; Z79.899 Other long term (current) drug therapy; Z88.8 Allergy status to other drugs, medicaments and biological substances; F17.210 Nicotine dependence, cigarettes, uncomplicated; Z99.3 Dependence on wheelchair
CPT/HCPCS: 66984; 82947; J2250; J3301; V2630

== ENCOUNTER 2024-02-02 14:19 | Inpatient (IN) | payer MEDICARE, SELFPAY ==
--- NOTE | ~2024-02-02 | CT_ITS ---
EXAMINATION: CT CHEST WITHOUT CONTRAST CLINICAL INFORMATION: Shortness of breath. Left pleural effusion COMPARISON: Chest x-ray February 02, 2024 TECHNIQUE: Multidetector volumetric CT imaging of the chest was done. Axial MIP volume rendering provided. Sagittal and coronal reformatted images were obtained. This CT examination was performed using dose optimization techniques as appropriate, variously including the following: *Automated exposure control *Adjustment of mA and/or kV according to patient size (this includes techniques or standardized protocols for targeted exams where dose is matched to indication/reason for exam; i.e. extremities or head) *Use of iterative reconstruction technique DLP: 328 mGy-cm FINDINGS: LUNGS: Compressive atelectasis at the left lung base. Fullness of the left infrahilar not well assessed without IV contrast. Right lung normally aerated. MEDIASTINUM: Heart size is normal. There are shotty subcentimeter lymph nodes in the pretracheal retrovascular space and AP window there is no bulky lymphadenopathy. CORONARY ARTERY CALCIFICATION: Small volume of coronary calcification PLEURA: Moderate volume left pleural effusion. AXILLA: No lymphadenopathy. UPPER ABDOMEN: Unremarkable. OSSEOUS STRUCTURES: Advanced multilevel degenerative spondylosis spine. CT/CT chest wo IV con IMPRESSION: Moderate volume left pleural effusion. Compressive atelectasis at the left lung base. Fullness of the left infrahilar region not well assessed without IV contrast. Repeat CT with IV contrast reveal for further assessment Fleischner guidelines were followed.
--- NOTE | ~2024-02-02 | XR_ITS ---
EXAMINATION: XR CHEST CLINICAL INFORMATION: Difficulty breathing. COMPARISON: None available. TECHNIQUE: 2 views of the chest were obtained. FINDINGS: Moderate to large volume left pleural effusion. Right lung normally aerated. No pulmonary vascular congestion. No pneumothorax. Orthopedic hardware lower cervical spine partially imaged. Multilevel degenerative spondylosis spine. XR/XR chest 2V IMPRESSION: Moderate to large volume left pleural effusion. CT of chest may be helpful for follow-up.
--- NOTE | ~2024-02-02 | US_ITS ---
EXAMINATION: ULTRASOUND-GUIDED THORACENTESIS CLINICAL INFORMATION: Pleural effusion COMPARISON: CT chest 02/02/2024. TECHNIQUE/FINDINGS: Informed consent was obtained following a discussion of the risks and benefits of the procedure with the patient. The patient was placed supine in the ultrasound procedure table. Preliminary ultrasound of the left chest demonstrates trace-small pleural effusion. There is consolidation with air bronchograms. A site on the left back was marked and sterilely prepped and draped. The pleural space was accessed with a 4 [place] EdCaliber centesis catheter. Approximately 250 mL of serous fluid was aspirated. The catheter was removed. A dressing was applied. Completion ultrasound demonstrates no significant residual fluid. A dressing was applied Patient tolerated the procedure well without immediate competitions. US/US thoracentesis IMPRESSION: Trace-small left pleural effusion. Most of the left basilar opacification seen on the CT scan in fact represents consolidation with air bronchograms. Ultrasound-guided thoracentesis as above. Labs sent
--- NOTE | ~2024-02-02 | XR_ITS ---
EXAMINATION: XR CHEST CLINICAL INFORMATION: Pleural effusion on the left COMPARISON: 02/02/2024 TECHNIQUE: Frontal view of the chest was obtained. FINDINGS: There is mediastinal shift towards the left due to left lower lobe collapse with trace of pleural effusion. Right lung is hyperinflated as well as hyperinflation seen through the left upper lobe. XR/XR chest 1V IMPRESSION: Left lower lobe collapse and trace of pleural effusion. No evidence of pneumothorax.
[2024-02-02 14:35] VITALS: BP 146/92; PULSE 122; RESP 26; TEMP 36.3; O2SAT 92; BMI 29.4
--- NOTE | 2024-02-02 14:35 | ECG_ITS ---
Test Reason : SOB Blood Pressure : / mmHG Vent. Rate : 111 BPM Atrial Rate : 111 BPM P-R Int : 142 ms QRS Dur : 078 ms QT Int : 338 ms P-R-T Axes : 082 070 074 degrees QTc Int : 459 ms Sinus tachycardia with Premature supraventricular complexes and Fusion complexes Possible Left atrial enlargement Possible Anterior infarct , age undetermined Abnormal ECG When compared with ECG of 30-DEC-2023 14:38, Fusion complexes are now Present Premature supraventricular complexes are now Present Referred By: Omari Mitchell Electronically Signed By:James Valenzuela
--- NOTE | 2024-02-02 14:35 | ED_ITS ---
HPI - General Adult General Chief complaint: Dyspnea Stated complaint: diff breathing Time Seen by Provider: 02/02/24 15:57 Source: patient and family Mode of arrival: ambulatory Limitations: no limitations History of Present Illness HPI narrative: Patient is a 63-year-old male who presents emergency department for evaluation of shortness of breath over the past few weeks. He states that his symptoms have been progressively worsening over the past week. He states at 1st he could not lie on his left side as it felt ?like I was breathing out of the small to?. He began then lying on his right side but has since had difficulty even doing met. He is dyspneic with minimal exertion upon transfer, he is primarily wheelchair-bound but is typically able to stand pivot for transfer He reports a productive cough with white phlegm. He is a cigarette smoker for the past 50 years. He denies any recent ill like symptoms, fevers, chills, chest pain, nausea, vomiting, abdominal pain. He admits to a history of CKD, states he has been referred to nephrology from his PCP but has yet to be seen Related Data Home Medications ?Medication ?Instructions ?Recorded ?Confirmed acetaminophen 500 mg capsule 1,000 mg PO Q6H PRN Pain 02/02/24 02/02/24 albuterol sulfate 90 mcg/actuation 2 puff inhalation Q4-6H PRN 02/02/24 02/02/24 aerosol inhaler Shortness Of Breath Or Wheezing Previous Rx's ?Medication ?Instructions ?Recorded blood sugar diagnostic (FreeStyle #100 ea 08/28/22 Lite Strips) lancets 28 gauge (FreeStyle #100 ea 08/28/22 Lancets) blood-glucose meter (FreeStyle #1 ea 10/27/22 Lite Meter kit) omeprazole 20 mg capsule,delayed 20 mg PO DAILY #30 caps 01/14/24 release Allergies Allergy/AdvReac Type Severity Reaction Status Date / Time gabapentin Allergy Unknown confusion Verified 02/02/24 14:38 Review of Systems 2 Review of Systems: Yes all other systems are reviewed and are negative PMFSH Past Medical History Attestation statement: The following information was validated with the patient. Source: old records reviewed Medical History (Updated 02/03/24 @ 01:59 by Debbie Au CNP) CKD (chronic kidney disease), stage IV Wheelchair bound Chronic pain syndrome Post laminectomy syndrome Hypertension Hypercholesterolemia Type 2 diabetes mellitus with hyperglycemia Chronic kidney disease Diabetic nephropathy Peripheral neuropathy Seasonal allergies Nicotine dependence, cigarettes, uncomplicated Anxiety and depression Bilateral cataracts Surgical History History of cataract surgery History of colonoscopy History of cervical spinal surgery History of lumbar surgery Family History Family History Other Mental health disorder Substance use disorder Social History Social History Household Members: Spouse and Family Housing: House Are you a primary health care marketing manager to a significant other at home: No Do you presently have visiting nurse or other home services: No Comment: can stand and pivot Patient Tobacco Use Status: Current everyday Tobacco user Tobacco use type: Cigarette Cigarette Packs Per Day: 1 Cigarettes Per Day: 20.0 Years Smoked: 1970 Smoked in Last 30 Days: Yes e-Cigarette/Vaping Use: Never Used Second Hand Smoke Exposure: No Use of substances other than those prescribed or required for medical reasons: No Advance Directives: No Advance Directives Information Provided: Yes service: No Current occupational status: retired and disabled Cognitive needs: Yes (wheelchair) Hearing needs: No Vision needs: No Physical Exam ED Vital Signs: Vital Signs - 24 hr 02/02/24 14:35 02/02/24 14:59 02/02/24 15:01 Temperature 97.4 F 97.4 F Pulse Rate 122 H 76 118 H Respiratory Rate 26 H 22 H 18 Blood Pressure 146/92 H 137/85 Pulse Oximetry 92 93 Oxygen Delivery Method Room Air Room Air 02/02/24 15:05 Temperature Pulse Rate Respiratory Rate 18 Blood Pressure Pulse Oximetry Oxygen Delivery Method BMI result Body Mass Index 29.4 Appearance: Alert.?Oriented to person, place and time. No acute distress.?Normal affect. Neck: Normal inspection.? Neck supple.?? CVS: Heart sounds normal. Normal heart rate and rhythm.? Pulses normal.?? Respiratory: No respiratory distress.? Lung sounds coarse bilaterally Abdomen: Soft and non-tender. Normoactive bowel sounds. No pulsatile mass.?? Skin: Skin warm and dry.? Normal skin color.? ? Extremities: No lower extremity edema.? No calf ttp? Neuro: Moves all extremities spontaneously. Sensation intact bilaterally. Ambulates with normal steady gait. Course Course Course Narrative: RME, this is a rapid medical exam performed by William Mitchell please refer to primary provider for complete H&P- 63-year-old male past medical history significant for hypertension, hyperlipidemia, diabetes, chronic kidney disease, neuropathy, asthma, presents for evaluation of shortness of breath for the last week. On exam he has coarse wheezing throughout. Plan for labs, chest x-ray, viral swab. Medications Administered Generic Name Dose Route Start Last Admin Trade Name Freq PRN Reason Stop Dose Admin Heparin Sodium (Porcine) 5,000 unit 02/02/24 18:00 02/02/24 19:02 Heparin Sodium,Porcine 5,000 Unit/Ml Vial SUBCUT 5,000 unit Q12H RUBA Administration Lactated Ringer's 1,000 mls @ 50 mls/hr 02/02/24 22:45 02/03/24 01:15 Lr IVCONT 50 mls/hr .Q20H RUBA Administration Insulin Human Lispro 0 unit 02/02/24 21:00 02/02/24 22:26 Insulin Lispro 100 Unit/Ml 3 Ml Vial SUBCUT 4 unit QIDACHS RUBA Administration Protocol Melatonin 6 mg 02/02/24 17:58 02/02/24 22:26 Melatonin 3 Mg Tablet PO 6 mg BEDTIME PRN Administration Insomnia Sodium Chloride 3 ml 02/03/24 00:00 02/03/24 01:15 0.9 % Sodium Chloride Flush 3 Ml Syringe IVFLUSH 3 ml QSHIFT RUBA Administration Discontinued Medications Generic Name Dose Route Start Last Admin Trade Name Freq PRN Reason Stop Dose Admin Acetaminophen 975 mg 02/02/24 17:47 02/02/24 17:53 Acetaminophen 325 Mg Tablet PO 02/02/24 17:48 975 mg ONCE ONE Administration Albuterol Sulfate 2.5 mg/ 0 mg 02/02/24 14:54 02/02/24 14:59 Albuterol/Ipratropium 3 ml INHALE 02/02/24 14:55 5 dose ONCE ONE Administration Albuterol Sulfate 2.5 mg/ 0 mg 02/02/24 15:30 02/02/24 15:42 Albuterol/Ipratropium 3 ml INHALE 02/02/24 15:31 5 dose ONCE ONE Administration Nicotine 21 mg 02/02/24 20:52 07/09/24 22:27 Nicotine 21 Mg Patch.Td24 TRANSDERMA 02/02/24 20:53 21 mg ONCE ONE Administration Procedures Smoking Cessation Time Spent Discussing Smoking Cessation w/Patient (min): 5 Patient Acknowledges Need for Cessation: Yes Additional Comments: One pack per day smoker for at least 50 years, states not ready to quit smoking, discussed potential nicotine replacement therapies. Medical Decision Making Medical Decision Making MDM Narrative: Patient is a 63 year old male with past medical history of hypertension, hyperlipidemia, diabetes, chronic kidney disease, neuropathy, asthma, post laminectomy syndrome who presents emergency department for evaluation of progressive shortness of breath as per HPI. At the time of my examination he does have mild increased work of breathing while at rest, is noted to be tachycardic which may be in part dilation the albuterol nebulizer he received prior to my assumption of care. He is afebrile. CXR is without infiltrate or consolidation to suggest a pneumonia, there is however a large left pleural effusion which is the likely cause for his shortness of breath, obtain a CT of the chest for further evaluation. Anticipate he will require thoracentesis, no evidence of prior pleural effusion. CBC revealing a mild leukocytosis of 12.3, normocytic anemia, no thrombocytopenia. Electrolytes overall unremarkable. MORENO on CKD, 12/2023 BUN/creatinine 5.2/4.05 referred to nephrology for PCP, BUN/creatinine today 66/1.42. Differential Diagnosis Differential Diagnoses: The differential diagnosis associated with the presentation includes (MORENO, CKD, CHF, pulmonary embolism, malignancy,) Admission/Observation Consideration of admission/observation: Escalation of care including admission/observation considered Consult Healthcare Provider Management of the patient was discussed with: Hospitalist (See course narrative) Admitted to medicine service, hospitalist Dr. Jin Lab Data [facility] Lab Attestation statement: I reviewed the patient's lab results. (See narrative above) 02/02/24 14:48 02/02/24 14:48 Labs: Lab Results 02/02/24 02/02/24 Range/Units 14:48 14:50 WBC 12.3 H (4.8-10.8) X10*3/uL RBC 4.28 L (4.60-5.80) X10*6/uL Hgb 11.6 L (14.0-18.0) g/dl Hct 35.7 L (42.0-52.0) % MCV 83.4 (80.0-98.0) fL MCH 27.1 (27.0-33.0) pg MCHC 32.5 (31.0-36.0) g/dl RDW 14.6 (11.0-16.0) % Plt Count 278 (160-400) X10*3/uL MPV 9.6 (9.4-12.4) fL Immature Gran % (Auto) 0.7 H (0.0-0.4) % Neut % (Auto) 83.2 H (45-73) % Lymph % (Auto) 8.5 L (20-40) % [place] % (Auto) 6.1 (2-11) % Eos % (Auto) 1.0 (0-4) % Baso % (Auto) 0.5 (0-2) % Lymph # (Auto) 1.0 L (1.2-4.9) X10*3/uL [place] # (Auto) 0.8 (0.1-1.2) X10*3/uL Eos # (Auto) 0.1 (0.0-0.4) X10*3/uL Baso # (Auto) 0.1 (0.0-0.2) X10*3/uL Abs Immat Gran (auto) 0.09 H (0.00-0.03) X10*3/uL Absolute Neuts (auto) 10.2 H (2.0-8.3) x10*3/uL Absolute Nucleated RBC 0.000 (0.0-0.012) X10*3/uL Nucleated RBC % (auto) 0.0 (0.0-0.2) /100WBC Sodium 137 (135-145) mmol/L Potassium 4.7 (3.3-5.1) mmol/L Chloride 105 (96-108) mmol/L Carbon Dioxide 19 L (22-29) mmol/L Anion Gap 18 (12-20) BUN 66 H (9-16) mg/dL Creatinine 4.42 H* (0.5-1.4) mg/dL Estim Creat Clear Calc 22.2 Estimated GFR 14 Random Glucose 127 H (60-115) mg/dL Calcium 8.9 (8.4-10.2) mg/dL Total Bilirubin 0.2 (0.0-1.0) mg/dL AST 15 (5-37) U/L ALT 8 (0-40) U/L Alkaline Phosphatase 134 H (39-117) U/L B-Natriuretic Peptide 129 H (<100) pg/mL Total Protein 7.2 (6.5-8.0) g/dL Albumin 3.1 L (3.5-5.0) g/dL Lipase 29 (8-78) U/L Influenza Type A (PCR) NEGATIVE (Negative) Influenza Type B (PCR) NEGATIVE (Negative) RSV RNA Qual (PCR) NEGATIVE (Negative) SARS-CoV-2 RNA (RT-PCR) NEGATIVE (Negative) Independent Interpretation I performed an independent interpretation of an: Plain X-Ray (See narrative above) Radiology Impression Discussion of test interpretation with radiology: I have reviewed the radiologist's reading. Radiologist Impression: XR/XR chest 2V IMPRESSION: Moderate to large volume left pleural effusion. CT of chest may be helpful for follow-up. CT/CT chest wo IV con IMPRESSION: Moderate volume left pleural effusion. Compressive atelectasis at the left lung base. Fullness of the left infrahilar region not well assessed without IV contrast. Repeat CT with IV contrast reveal for further assessment Independent Historian Clinical information obtained from an independent historian. History obtained from or confirmed by: Spouse External Record Review External record reviewed: Outpatient record Discharge Plan Discharge Clinical Impression: Acute kidney injury superimposed on stage 4 chronic kidney disease, Pleural effusion, left, Nicotine dependence, cigarettes, uncomplicated Patient Disposition: Admitted As Inpatient
[2024-02-02 14:52] LABS: MANUAL DIFF FLAG NO
[2024-02-02 14:54] LABS: Basophils Absolute Auto 0.1 X10*3/uL (0.0-0.2); Basophils Percent Auto 0.5 % (0-2); Eosinophils Absolute Auto 0.1 X10*3/uL (0.0-0.4); Hematocrit 35.7 % (42.0-52.0); Hemoglobin 11.6 g/dl (14.0-18.0); Imm Gran Abs Auto 0.09 X10*3/uL (0.00-0.03); Imm Gran Pct Auto 0.7 % (0.0-0.4); Lymphocytes Percent Auto 8.5 % (20-40); Mean Corpuscular HGB Conc 32.5 g/dl (31.0-36.0); Mean Corpuscular Hemoglobin 27.1 pg (27.0-33.0); Mean Corpuscular Volume 83.4 fL (80.0-98.0); Mean Platelet Volume 9.6 fL (9.4-12.4); Monocytes Absolute Auto 0.8 X10*3/uL (0.1-1.2); Monocytes Percent Auto 6.1 % (2-11); Neutrophils Absolute Auto 10.2 x10*3/uL (2.0-8.3); Neutrophils Percent Auto 83.2 % (45-73); Platelet Count 278 X10*3/uL (160-400); Red Blood Count 4.28 X10*6/uL (4.60-5.80); Red Cell Distribution Width 14.6 % (11.0-16.0); White Blood Count 12.3 X10*3/uL (4.8-10.8)
[2024-02-02 14:59] VITALS: PULSE 76; RESP 22; O2SAT 94
[2024-02-02] MEDS: Albuterol Sulfate 2.5 MG, Albuterol/Iprat 2.5/0.5MG 3 ML 3 ML INHALE ×2 (14:59→15:42)
[2024-02-02 15:01] VITALS: BP 137/85; PULSE 118; RESP 18; TEMP 36.3; O2SAT 93
[2024-02-02 15:05] VITALS: RESP 18
[2024-02-02 15:16] LABS: Alanine Aminotransferase 8 U/L (0-40); Albumin Level 3.1 g/dL (3.5-5.0); Alkaline Phosphatase 134 U/L (39-117); Anion Gap 18 (12-20); Aspartate Amino Transferase 15 U/L (5-37); Bilirubin Total 0.2 mg/dL (0.0-1.0); Blood Urea Nitrogen 66 mg/dL (9-16); Calcium 8.9 mg/dL (8.4-10.2); Carbon Dioxide 19 mmol/L (22-29); Chloride 105 mmol/L (96-108); Creatinine Clr Calc Pharmacy 22.2; Estimated Glomerular Filt Rate 14; Glucose Random 127 mg/dL (60-115); Lipase 29 U/L (8-78); Potassium 4.7 mmol/L (3.3-5.1); Sodium 137 mmol/L (135-145); Total Protein 7.2 g/dL (6.5-8.0)
[2024-02-02 15:31] LABS: Influenza A PCR NEGATIVE (Negative); Influenza B PCR NEGATIVE (Negative); Resp Syncy Virus RNA Qual PCR NEGATIVE (Negative); SARS COV2 PCR INHOUSE NEGATIVE (Negative)
[2024-02-02 16:42] LABS: B Type Natriuretic Peptide 129 pg/mL (<100)
--- NOTE | 2024-02-02 17:34 | P.HPHOSP_ITS ---
History of Present Illness Date of Service: 02/02/24 Chief Complaint: Shortness of Breath 63-year-old male smoker, wheelchair-bound with a history of post-laminectomy syndrome, diet-controlled diabetes mellitus, chronic kidney disease stage 4, hypercholesterolemia, and hypertension. He presents to the ED with shortness of breath that has been ongoing for at least 1 week and has worsened over the last 3-4 days. It is worse with minimal effort and more pronounced when lying on his left side. No PND, no orthopnea, no leg edema, BNP 129; has some cough with clear phlegm. CXR and non-contrast chest CT show a moderate to large left-sided pleural effusion. RSV, covid, flu negative. Further imaging is advised with a contrast study; however, he has worsening kidney disease on top of his baseline CKD. He is due to see a top tile decorator soon. He is an active smoker with no diagnosis of COPD. Given bronchodilators in the ED, he has no wheezing. Review of Systems 2 Review of Systems: Gen: no fever Resp: + sob, + cough CV: no chest, no RICE, no leg edema GI: No n/v, no abd pain Neuro: No confusion Yes all other systems are reviewed and are negative [facility] Medical History (Updated 02/02/24 @ 17:36 by Kingsley Jin MD) CKD (chronic kidney disease), stage IV Wheelchair bound Chronic pain syndrome Post laminectomy syndrome Hypertension Hypercholesterolemia Type 2 diabetes mellitus with hyperglycemia Chronic kidney disease Diabetic nephropathy Peripheral neuropathy Seasonal allergies Nicotine dependence, cigarettes, uncomplicated Anxiety and depression Bilateral cataracts Family History Other Mental health disorder Substance use disorder Surgical History History of cataract surgery History of colonoscopy History of cervical spinal surgery History of lumbar surgery Social History Household Members: Spouse and Family Housing: House Are you a primary careers adviser to a significant other at home: No Do you presently have visiting nurse or other home services: No Comment: can stand and pivot Patient Tobacco Use Status: Current everyday Tobacco user Tobacco use type: Cigarette Cigarette Packs Per Day: 1 Cigarettes Per Day: 20.0 Years Smoked: 1970 Smoked in Last 30 Days: Yes e-Cigarette/Vaping Use: Never Used Second Hand Smoke Exposure: No Use of substances other than those prescribed or required for medical reasons: No Advance Directives: No Advance Directives Information Provided: Yes service: No Current occupational status: retired and disabled Cognitive needs: Yes (wheelchair) Hearing needs: No Vision needs: No Meds Allergies Allergy/AdvReac Type Severity Reaction Status Date / Time gabapentin Allergy Unknown confusion Verified 02/02/24 14:38 Active Medications: Current Medications Glucose (Glucose Gel 15 Gm Gel..Gram.) 15 gm PO Q15M PRN; Protocol PRN Reason: per Hypoglycemia Standing Ord. Dextrose (D10) 250 mls @ 750 mls/hr IV Q15M PRN; Protocol PRN Reason: per Hypoglycemia Standing Ord. Insulin Human Lispro (Insulin Lispro 100 Unit/Ml 3 Ml Vial) 0 unit SUBCUT QIDACHS [facility]; Protocol Home Medications ?Medication ?Instructions ?Recorded ?Confirmed ?Last Taken ?Type acetaminophen 500 mg capsule 1,000 mg PO Q6H PRN Pain 02/02/24 02/02/24 Unknown History albuterol sulfate 90 mcg/actuation 2 puff inhalation Q4-6H PRN 02/02/24 02/02/24 Unknown History aerosol inhaler Shortness Of Breath Or Wheezing Physical Exam 2 Vital Signs and Narrative: Vital Signs: Last Vital Signs Temp 97.4 F 02/02/24 15:01 Pulse 118 H 02/02/24 15:01 Resp 18 02/02/24 15:05 BP 137/85 02/02/24 15:01 Pulse Ox 93 02/02/24 15:01 O2 Del Method Room Air 02/02/24 15:01 BMI result Body Mass Index 29.4 Const: Other: Constitutional: Alert, in no distress, Mental Status: Oriented to person, place and time. Eyes: Pupils are equal, round and reactive to light. Ear, Nose and Throat: Oropharynx clear, mucous membranes moist. Ears and nose without deformities. Trachea midline. Respiratory: diminished breath sounds on left side, othewise clear Cardiovascular: S1 S2 regular. No murmurs, rubs or gallops. No leg edema. Gastrointestinal: Abdomen soft, non-tender, non-distended. Normal bowel sounds.? Neurologic: Cranial nerves II-XII grossly intact. No focal neurological deficits. Moves all extremities spontaneously.? Skin: No rashes or lesions.? Musculoskeletal: No cyanosis or clubbing. Psychiatric: Normal mood and affect? Results Labs 02/02/24 14:48 02/02/24 14:48 Labs: Laboratory Results - last 24 hr 02/02/24 02/02/24 14:48 14:50 MCV 83.4 MCH 27.1 MCHC 32.5 RDW 14.6 Plt Count 278 MPV 9.6 Immature Gran % (Auto) 0.7 H Neut % (Auto) 83.2 H Lymph % (Auto) 8.5 L [place] % (Auto) 6.1 Eos % (Auto) 1.0 Baso % (Auto) 0.5 Lymph # (Auto) 1.0 L [place] # (Auto) 0.8 Eos # (Auto) 0.1 Baso # (Auto) 0.1 Abs Immat Gran (auto) 0.09 H Absolute Neuts (auto) 10.2 H Absolute Nucleated RBC 0.000 Nucleated RBC % (auto) 0.0 Anion Gap 18 Estim Creat Clear Calc 22.2 Estimated GFR 14 Random Glucose 127 H Calcium 8.9 Total Bilirubin 0.2 AST 15 ALT 8 Alkaline Phosphatase 134 H B-Natriuretic Peptide 129 H Total Protein 7.2 Albumin 3.1 L Lipase 29 Influenza Type A (PCR) NEGATIVE Influenza Type B (PCR) NEGATIVE RSV RNA Qual (PCR) NEGATIVE SARS-CoV-2 RNA (RT-PCR) NEGATIVE Imaging Radiologist's Impressions: Impressions Chest X-Ray 02/02/24 15:42 IMPRESSION: Moderate to large volume left pleural effusion. CT of chest may be helpful for follow-up. Chest CT 02/02/24 17:00 IMPRESSION: Moderate volume left pleural effusion. Compressive atelectasis at the left lung base. Fullness of the left infrahilar region not well assessed without IV contrast. Repeat CT with IV contrast reveal for further assessment Fleischner guidelines were followed. Assessment and Plan (1) Pleural effusion, left: Status: Acute (2) Acute kidney injury superimposed on stage 4 chronic kidney disease: Status: Acute Plan 63/m with CKD4, HTN, diet controlled dm, wheel chair bound since a post laminectomy 4 years ago here with worsening SOB and found to have a large left side ppleural effusin SOB, I suspect this is due to symptomatic left sided pleural effusion, the nature of which is unknow at this time -request diagnostic and therapeutic thoracentesis for cell count, culture and cytology MORENO on CKD--Cr is just slightly up since december, monitor and get nephrology input, gentle ivf DM--diet controlled, last Hgb A1C iin December was 6.2 -SSI, diabetic diet Metabolic Acidosis--due to renal failue, monitor HLD--statin Probably undiagnosed copd, bronchodilators, no indication for steroid at this time Mild leukocytosis, no fever, no other sings of infection, hold Abx Heparin for DVT, Full code Admission for at least 2 midnights for the managment of symptomatic pleural effusion that need intervention and fluid analysis Quality Stroke Does the patient have a stroke diagnosis?: No VTE Prior VTE?: No VTE Risk Level:: Medical - moderate - high VTE Device Contraindication: Treatment Not Tolerated VTE Drug Contraindication: N/A - Med Ordered
[2024-02-02] MEDS: Acetaminophen 325 MG TABLET 975 MG PO (17:53)
[2024-02-02 18:15] VITALS: BP 154/91; PULSE 112; RESP 37; TEMP 36.6; O2SAT 95
--- NOTE | 2024-02-02 18:47 | PHA.MEDREC ---
Pharmacy Consult ? Medication Reconciliation Pharmacy has completed the medication reconciliation. Spoke to patient to confirm med list. Patient states he is no longer taking Clotimazole 1% cream bid, Ammonium lactate 12% cream bid. Patient also stated he didn't start Atorvastatin 10 mg daily, and glipizide 5 mg daily because he doesn't like the smell of them. Patient says he takes CBD gummy at bedtime and [place] tail mushroom daily however didn't know the dosing. so, i left them off med list.
[2024-02-02] MEDS: Heparin Sodium,Porcine 5,000 UNIT/ML VIAL 5000 UNIT SUBCUT (19:02)
[2024-02-02 20:48] VITALS: BP 153/99; PULSE 112; RESP 22; TEMP 36.5; O2SAT 99
[2024-02-02 21:59] LABS: Glucose, Whole Blood 220 mg/dL (60-115)
[2024-02-02] MEDS: Melatonin 3 MG TABLET 6 MG PO (22:26)
[2024-02-02] MEDS: Insulin Lispro 100 UNIT/ML 3 ML VIAL SUBCUT (22:26)
[2024-02-02] MEDS: Nicotine 21 MG PATCH.TD24 TRANSDERMA (22:27)
[2024-02-03] VITALS (7 sets, daily range): BP systolic 146–178; BP diastolic 71–101; PULSE 80–105; RESP 15–20; TEMP 36.3–37.2; O2SAT 98–100
[2024-02-03] MEDS: Lactated Ringers 1,000 ML 50 ML IVCONT (01:15)
[2024-02-03] MEDS: 0.9 % Sodium Chloride Flush 3 ML SYRINGE IVFLUSH ×3 (01:15→21:05)
[2024-02-03] MEDS: oxyCODONE HCl Immed Release 5 MG TABLET PO ×3 (03:54→17:41)
--- NOTE | 2024-02-03 04:07 | MHC.EDTECH ---
Guille catheter placed on Pt
[2024-02-03 04:49] LABS: INTERNATIONAL NORM RATIO 1.1 (0.9-1.1); Prothrombin Time 13.3 SEC (11.1-13.3)
[2024-02-03 05:08] LABS: Anion Gap 15 (12-20); Blood Urea Nitrogen 73 mg/dL (9-16); Calcium 8.6 mg/dL (8.4-10.2); Carbon Dioxide 19 mmol/L (22-29); Chloride 105 mmol/L (96-108); Creatinine Clr Calc Pharmacy 21.1; Estimated Glomerular Filt Rate 13; Glucose Random 76 mg/dL (60-115); Potassium 4.9 mmol/L (3.3-5.1); Sodium 134 mmol/L (135-145)
--- NOTE | 2024-02-03 06:38 | PC.NURSE ---
Pt is 63 year old male wheelchair bound at baseline and hx of back surgery presented for increased SOB X 2 weeks. O2 sat 92% on presentation to ED. given updraft treatment and placed on 22L NC and had developed productive cough which per pt helped feel a bit better sats improved to 96%. CT chest showed L-pleural effusion and compressive atelectasis in L-Lung base. Plan for thoracentesis. Kidney function elevated, slow IV hydration of LR at 50ml/hr nephrology consult today. Pt Alert and oriented X4, Diminished lung sounds in L, received Tylenol and oxycodone throughout night for leg and back pain. Pt also received melatonin and nicotine patch to R-upper arm. Pt diabetic, bedtime POC 220 and received 4 units of Admelog. BNP-129, Pt 2 assist reposition in bed, uses urinal independently but requested [facility] d/t difficulties. Diabetic diet, no visible skin issues. IV #20 L-AC Pt placed in hospital bed for comfort.
[2024-02-03] MEDS: Heparin Sodium,Porcine 5,000 UNIT/ML VIAL 5000 UNIT SUBCUT ×2 (06:49→17:45)
[2024-02-03] MEDS: Omeprazole 20 MG CAPSULE.DR PO (06:49)
[2024-02-03 07:23] LABS: Estimated Average Glucose 134 mg/dL; Hemoglobin A1c % 6.3 % (<6.0)
[2024-02-03 07:51] LABS: Glucose, Whole Blood 82 mg/dL (60-115)
[2024-02-03 12:14] LABS: Glucose, Whole Blood 97 mg/dL (60-115)
--- NOTE | 2024-02-03 13:53 | MHC.CM.PN ---
Attempted to meet with patient in regards to discharge planning. Patient currently not in room. No family at bedside. Will attempt to meet again. Continue to monitor for d/c needs.
--- NOTE | 2024-02-03 13:56 | P.PNIM_ITS ---
Subjective Subjective Date of Service: 02/03/24 Interval History: f/u on SOB, MORENO on CKD renal function is slightly worse than yesterday still with sob, not worse. Physical Exam 2 Vital Signs: Vital Signs: Last Vital Signs Temp 97.3 F 02/03/24 06:00 Pulse 97 02/03/24 06:00 Resp 18 02/03/24 06:00 BP 177/94 H 02/03/24 06:00 Pulse Ox 100 02/03/24 06:00 O2 Del Method Nasal Cannula 02/03/24 06:00 O2 Flow Rate 2 02/03/24 06:00 BMI result Body Mass Index 29.4 Const: Other: Constitutional: Alert, in no distress, Respiratory: diminished breath sounds on left side, othewise clear Cardiovascular: S1 S2 regular. No murmurs, rubs or gallops. No leg edema. Gastrointestinal: Abdomen soft, non-tender, non-distended. Normal bowel sounds.? Neurologic: Cranial nerves II-XII grossly intact. No focal neurological deficits. Moves all extremities spontaneously.? Skin: No rashes or lesions.? Musculoskeletal: No cyanosis or clubbing. Psychiatric: Normal mood and affect? Objective Data Active Medications Acetaminophen (Acetaminophen 325 Mg Tablet) 650 mg PO Q6H PRN PRN Reason: Pain, Mild (Pain Scale 1-3), fever or headache Calcium Carbonate (Calcium Carbonate 750 Mg Tab.Chew) 750 mg PO Q4H PRN PRN Reason: Heartburn Glucose (Glucose Gel 15 Gm Gel..Gram.) 15 gm PO Q15M PRN; Protocol PRN Reason: per Hypoglycemia Standing Ord. Heparin Sodium (Porcine) (Heparin Sodium,Porcine 5,000 Unit/Ml Vial) 5,000 unit SUBCUT Q12H [facility] Last Admin: 02/03/24 06:49 Dose: 5,000 unit Documented By: MEREDITH Dextrose (D10) 250 mls @ 750 mls/hr IV Q15M PRN; Protocol PRN Reason: per Hypoglycemia Standing Ord. Lactated Ringer's (Lr) 1,000 mls @ 50 mls/hr IVCONT .Q20H [facility] Last Admin: 02/03/24 01:15 Dose: 50 mls/hr Documented By: MEREDITH Insulin Human Lispro (Insulin Lispro 100 Unit/Ml 3 Ml Vial) 0 unit SUBCUT QIDACHS [facility]; Protocol Last Admin: 02/03/24 12:50 Dose: Not Given Documented By: FARHAD Non-Admin Reason: See Note Comments: BGL 97 Levalbuterol HCl (Levalbuterol Hcl 1.25 Mg/3 Ml Vial.Neb) 1.25 mg INHALE Q4H PRN PRN Reason: Shortness of Breath/Wheezing Magnesium Hydroxide (Milk Of Magnesia 30 Ml Oral.Susp) 30 ml PO DAILY PRN PRN Reason: Constipation Melatonin (Melatonin 3 Mg Tablet) 6 mg PO BEDTIME PRN PRN Reason: Insomnia Last Admin: 02/02/24 22:26 Dose: 6 mg Documented By: MEREDITH Omeprazole (Omeprazole 20 Mg Capsule.) 20 mg PO DAILY@0630 [facility] Last Admin: 02/03/24 06:49 Dose: 20 mg Documented By: MEREDITH Oxycodone HCl (Oxycodone Hcl Immed Release 5 Mg Tablet) 5 mg PO Q6H PRN PRN Reason: Pain, Severe (Pain Scale 7-10) Last Admin: 02/03/24 12:02 Dose: 5 mg Documented By: FARHAD Sodium Chloride (0.9 % Sodium Chloride Flush 3 Ml Syringe) [facility] Last Admin: 02/03/24 10:23 Dose: Not Given Documented By: FARHAD Non-Admin Reason: IV Running Labs 02/02/24 14:48 02/03/24 04:20 Labs: Laboratory Results - last 24 hr 02/02/24 02/02/24 02/02/24 14:48 14:50 21:52 MCV 83.4 MCH 27.1 MCHC 32.5 RDW 14.6 Plt Count 278 MPV 9.6 Immature Gran % (Auto) 0.7 H Neut % (Auto) 83.2 H Lymph % (Auto) 8.5 L [place] % (Auto) 6.1 Eos % (Auto) 1.0 Baso % (Auto) 0.5 Lymph # (Auto) 1.0 L [place] # (Auto) 0.8 Eos # (Auto) 0.1 Baso # (Auto) 0.1 Abs Immat Gran (auto) 0.09 H Absolute Neuts (auto) 10.2 H Absolute Nucleated RBC 0.000 Nucleated RBC % (auto) 0.0 PT INR Anion Gap 18 Estim Creat Clear Calc 22.2 Estimated GFR 14 POC Glucose 220 H Random Glucose 127 H Estimat Average Glucose Hemoglobin A1c % Calcium 8.9 Total Bilirubin 0.2 AST 15 ALT 8 Alkaline Phosphatase 134 H B-Natriuretic Peptide 129 H Total Protein 7.2 Albumin 3.1 L Lipase 29 Influenza Type A (PCR) NEGATIVE Influenza Type B (PCR) NEGATIVE RSV RNA Qual (PCR) NEGATIVE SARS-CoV-2 RNA (RT-PCR) NEGATIVE 02/03/24 02/03/24 02/03/24 04:20 07:47 12:06 MCV MCH MCHC RDW Plt Count MPV Immature Gran % (Auto) Neut % (Auto) Lymph % (Auto) [place] % (Auto) Eos % (Auto) Baso % (Auto) Lymph # (Auto) [place] # (Auto) Eos # (Auto) Baso # (Auto) Abs Immat Gran (auto) Absolute Neuts (auto) Absolute Nucleated RBC Nucleated RBC % (auto) PT 13.3 INR 1.1 Anion Gap 15 Estim Creat Clear Calc 21.1 Estimated GFR 13 POC Glucose 82 97 Random Glucose 76 Estimat Average Glucose 134 Hemoglobin A1c % 6.3 H Calcium 8.6 Total Bilirubin AST ALT Alkaline Phosphatase B-Natriuretic Peptide Total Protein Albumin Lipase Influenza Type A (PCR) Influenza Type B (PCR) RSV RNA Qual (PCR) SARS-CoV-2 RNA (RT-PCR) Assessment and Plan (1) Acute kidney injury superimposed on stage 4 chronic kidney disease: Status: Acute (2) Pleural effusion, left: Status: Acute Plan 63/m with CKD4, HTN, diet controlled dm, wheel chair bound since a post laminectomy 4 years ago here with worsening SOB and found to have a large left side ppleural effusin SOB, likely left sided pleural effusion, the nature of which is unknown at this time -Thoracentesis done, fluid analysis pending MORENO on CKD--Cr is slightly up despite IVF, stop IVF, awaiting additional input from Nephrology DM--diet controlled, last Hgb A1C iin December was 6.2 -SSI, diabetic diet--sugars are < 100 Metabolic Acidosis--due to renal failue, monitor HLD--statin Probably undiagnosed copd, bronchodilators, no indication for steroid at this time Mild leukocytosis, no fever, no other sings of infection, hold Abx Heparin for DVT: heparin Full code Admission for at least 2 midnights for the managment of symptomatic pleural effusion that need intervention and fluid analysis Quality Stroke Does the patient have a stroke diagnosis?: No VTE Prior VTE?: No VTE Risk Level:: Medical - moderate - high VTE Device Contraindication: Treatment Not Tolerated VTE Drug Contraindication: N/A - Med Ordered
--- NOTE | 2024-02-03 14:12 | PC.NURSE ---
This RN recevied repot from IR RN who stated pt had 250mls removed during his thoracentesis. Per RN pt reports He can breath much easier . Denies SOB or Chest. IR did a post scan Ultrasound but not a post scan x-ray per IR RN
[2024-02-03] MEDS: Lidocaine HCl 1 % MPF 5 ML VIAL SUBCUT (14:21)
[2024-02-03 14:39] LABS: MN% 83.8 %; PMN% 16.2 %; WBC Pleural Fluid 1.914 X10*3/uL
[2024-02-03 14:48] LABS: RBC Pleural Fluid < 0.002 X10*6/uL
[2024-02-03 15:28] LABS: Lymphocytes Pleural Fluid 24 %; Monocytes Pleural Fluid 13 %; Neutrophils Pleural Fluid 40 %; Other Cells Plerual Fl 23 %
[2024-02-03 15:29] LABS: BF Shift QC OK YES
--- NOTE | 2024-02-03 15:30 | MHC.EDTECH ---
THIS PCT ASSUMED CARE OF PATIENT AT 1500 ,VITALS TAKEN ,PATIENT FAMILY MEMBER AT BEDSIDE .
--- NOTE | 2024-02-03 16:01 | PM.CNNEP ---
History of Present Illness Reason for Consult Consult date: 02/03/24 Reason for consult: Chronic kidney disease Chief Complaint Chief complaint: Symptomatic pleural effusion History of Present Illness Narrative: Cloton is a 63-year-old man with a history of chronic kidney disease. He was seen by Dr. Rodriguez more than 1 year ago and subsequently lost to follow-up. He has chosen to transition care to [place]. Family was at bedside. He has a history of longstanding diabetes mellitus with proteinuria. He has underlying chronic kidney disease with a baseline creatinine of around 2 mg/dL. History of longstanding hypertension. He underwent laminectomy and he has foot drop in currently uses a wheelchair. History of chronic smoking. He has a history of cough leg edema. History of weight loss and loss of appetite. Came into the ER with shortness of breath he was found to have significant pleural effusion. He is undergone thoracentesis . Breathing has somewhat improved. Review of Systems Review of Systems Review of system was significant for shortness of breath. Weight loss. Loss of appetite. No nausea vomiting. No diarrhea. He is significant edema which has improved. Currently he has not on diuretics. FORMERLY [facility], [facility] Past Medical History Medical History (Updated 02/03/24 @ 01:59 by Debbie Au CNP) CKD (chronic kidney disease), stage IV Wheelchair bound Chronic pain syndrome Post laminectomy syndrome Hypertension Hypercholesterolemia Type 2 diabetes mellitus with hyperglycemia Chronic kidney disease Diabetic nephropathy Peripheral neuropathy Seasonal allergies Nicotine dependence, cigarettes, uncomplicated Anxiety and depression Bilateral cataracts Family History Family History Other Mental health disorder Substance use disorder Surgical History Surgical History History of cataract surgery History of colonoscopy History of cervical spinal surgery History of lumbar surgery Social History Social History Household Members: Spouse and Family Housing: House Are you a primary animal daycare provider to a significant other at home: No Do you presently have visiting nurse or other home services: No Comment: can stand and pivot Patient Tobacco Use Status: Current everyday Tobacco user Tobacco use type: Cigarette Cigarette Packs Per Day: 1 Cigarettes Per Day: 20.0 Years Smoked: 1970 Smoked in Last 30 Days: No e-Cigarette/Vaping Use: Never Used Second Hand Smoke Exposure: No Use of substances other than those prescribed or required for medical reasons: No Advance Directives: No Advance Directives Information Provided: Yes Nutrition Risks: No Nutritional Risk service: No Current occupational status: retired and disabled Cognitive needs: Yes (wheelchair) Hearing needs: No Vision needs: No Meds Allergies Allergy/AdvReac Type Severity Reaction Status Date / Time gabapentin Allergy Unknown confusion Verified 02/02/24 14:38 Active Medications: Current Medications Acetaminophen (Acetaminophen 325 Mg Tablet) 650 mg PO Q6H PRN PRN Reason: Pain, Mild (Pain Scale 1-3), fever or headache Calcium Carbonate (Calcium Carbonate 750 Mg Tab.Chew) 750 mg PO Q4H PRN PRN Reason: Heartburn Glucose (Glucose Gel 15 Gm Gel..Gram.) 15 gm PO Q15M PRN; Protocol PRN Reason: per Hypoglycemia Standing Ord. Heparin Sodium (Porcine) (Heparin Sodium,Porcine 5,000 Unit/Ml Vial) 5,000 unit SUBCUT Q12H [facility] Last Admin: 02/03/24 06:49 Dose: 5,000 unit Dextrose (D10) 250 mls @ 750 mls/hr IV Q15M PRN; Protocol PRN Reason: per Hypoglycemia Standing Ord. Piperacillin Sod/Tazobactam (Sod 2.25 gm/ Sodium Chloride) 50 mls @ 100 mls/hr IV Q6H [facility] Insulin Human Lispro (Insulin Lispro 100 Unit/Ml 3 Ml Vial) 0 unit SUBCUT QIDACHS [facility]; Protocol Last Admin: 02/03/24 12:50 Dose: Not Given Levalbuterol HCl (Levalbuterol Hcl 1.25 Mg/3 Ml Vial.Neb) 1.25 mg INHALE Q4H PRN PRN Reason: Shortness of Breath/Wheezing Magnesium Hydroxide (Milk Of Magnesia 30 Ml Oral.Susp) 30 ml PO DAILY PRN PRN Reason: Constipation Melatonin (Melatonin 3 Mg Tablet) 6 mg PO BEDTIME PRN PRN Reason: Insomnia Last Admin: 02/02/24 22:26 Dose: 6 mg Omeprazole (Omeprazole 20 Mg Capsule.) 20 mg PO DAILY@0630 [facility] Last Admin: 02/03/24 06:49 Dose: 20 mg Oxycodone HCl (Oxycodone Hcl Immed Release 5 Mg Tablet) 5 mg PO Q6H PRN PRN Reason: Pain, Severe (Pain Scale 7-10) Last Admin: 02/03/24 12:02 Dose: 5 mg Sodium Chloride (0.9 % Sodium Chloride Flush 3 Ml Syringe) 3 ml IVFLUSH QSHIFT [facility] Last Admin: 02/03/24 10:23 Dose: Not Given Home Medications ?Medication ?Instructions ?Recorded ?Confirmed ?Last Taken ?Type acetaminophen 500 mg capsule 1,000 mg PO Q6H PRN Pain 02/02/24 02/02/24 Unknown History albuterol sulfate 90 mcg/actuation 2 puff inhalation Q4-6H PRN 02/02/24 02/02/24 Unknown History aerosol inhaler Shortness Of Breath Or Wheezing Physical Exam Vital Signs: Last Vital Signs Temp 98.9 F 02/03/24 15:28 Pulse 99 02/03/24 15:28 Resp 15 02/03/24 15:28 BP 171/101 H 02/03/24 15:28 Pulse Ox 99 02/03/24 15:28 O2 Del Method Nasal Cannula 02/03/24 15:28 O2 Flow Rate 2 02/03/24 15:28 BMI result Body Mass Index 29.4 Const General: ill appearing Neck Neck: Yes supple Resp Auscultation: rhonchi and No rub present Cardio Palpation: no palpable S3 Heart sounds: no rubs GI Palpation (GI): Soft to palpation Auscultation: normal bowel sounds Neuro Motor exam (neuro): no asterixis Results Lab Results 02/02/24 14:48 02/03/24 04:20 Lab results: Chemistry 02/02/24 02/03/24 14:48 04:20 Sodium 137 134 L Potassium 4.7 4.9 Carbon Dioxide 19 L 19 L BUN 66 H 73 H Creatinine 4.42 H* 4.66 H* Calcium 8.9 8.6 Hematology 02/02/24 14:48 WBC 12.3 H Hgb 11.6 L Plt Count 278 Assessment and Plan (1) Acute kidney injury superimposed on stage 4 chronic kidney disease: Status: Acute Plan MORENO superimposed on advanced CKD. CKD is most likely due to underlying diabetic nephropathy. Other nondiabetic causes should be considered. MORENO most likely due to hypoperfusion from volume depletion. He is significant edema in the past which has completely resolved. today he has no overt signs or symptoms of uremia. Recommendations Check urinalysis along with urine sodium, creatinine, protein. Check SPEP UPEP C3-C4 and ANCA. Avoid nephrotoxic agents including and NSAIDs. IV hydration. Keep intake more than output Watch urine output closely. Concur with other medical management. No absolute indication for dialysis yet. shall follow along with the team. Thank you Procedures Date of Service Date of Service: 02/03/24
--- NOTE | 2024-02-03 16:06 | MHC.CM.PN ---
Met with patient, Bouchra and daughter in regards to discharge planning. Patient lives with his and son, uses a motorized wheelchair for mobility related to RA and had no services prior to coming to the hospital. PCP verified. Patient changed to [facility] from [facility]. 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 However, patient has been experiencing difficulty getting this started with his [facility] care management. Patient used to be able to go to [facility] when there were issues with this wheelchair. His [facility] certified caregiver told him to use [facility] in [place]. However [facility] told patient his manager medicare would have to make a referral. IMM explained and signed. Patient's family will transport him home when medically stable. Sarah, [facility] so manager medicare can be made aware about need for [employer] PRESS SET UP OPERATOR and help with getting electric wheelchair fixed. Continue to monitor for d/c needs.
--- NOTE | 2024-02-03 17:09 | P.CONPL_ITS ---
History of Present Illness History of Present Illness Consult date: 02/03/24 Chief complaint: Symptomatic pleural effusion Narrative: 63-year-old gentleman, active 40+ pack-year smoker with underlying CKD and diabetes mellitus admitted on 02/02/2024 with dyspnea and moderate left-sided pleural effusion. Patient treated with empiric antibiotics and had left-sided thoracentesis with drainage of approximately 250 cc of serous fluid with pleural studies pending this time. Pulmonary evaluation requested. Patient endorses significant weight loss over the past 4 months. He complains of nonproductive cough over the approximately same amount of time and slowly worsening dyspnea. Review of Systems 2 Constitutional: Constitutional: Denies daytime sleepiness, Denies excessive sweating, Denies fatigue, Denies fever(s), Denies lethargy, Reports malaise, Denies night sweats, Denies snoring and Reports weight loss Eyes: Eyes: Denies blurry vision and Denies itchy eyes ENT: Denies nasal congestion, Denies post nasal drip, Denies sinus pain, Denies sinus pressure and Denies other ( Thrush) Cardiovascular: Cardiovascular: Denies chest pain, Denies pedal edema, Reports dyspnea, Denies orthopnea and Denies paroxysmal nocturnal dyspnea Respiratory: Respiratory: Reports cough, Denies hemoptysis, Denies excessive phlegm production, Reports dyspnea, Denies snoring and Denies wheezing Gastrointestinal: Gastrointestinal: Denies abdominal pain and Denies heartburn Integumentary/Breasts: Skin/Breast: Denies rash Neurologic: Denies memory loss and Denies seizure-like activity Psychiatric: Psychiatric: Denies abnormal sleep pattern, Denies anxiety and Denies memory loss Endocrine: Endocrine: Denies excessive sweating, Denies fatigue and Denies heat intolerance Hematologic/Lymphatic: Hematologic/Lymphatic: Denies easy bruising Allergic/Immunologic: Allergic/Immunologic: Denies itchy eyes, Denies seasonal rhinorrhea and Denies wheezing PMFSH Past Medical History Medical History (Updated 02/03/24 @ 17:12 by Yuri Juares MD) CKD (chronic kidney disease), stage IV Wheelchair bound Chronic pain syndrome Post laminectomy syndrome Hypertension Hypercholesterolemia Type 2 diabetes mellitus with hyperglycemia Chronic kidney disease Diabetic nephropathy Peripheral neuropathy Seasonal allergies Nicotine dependence, cigarettes, uncomplicated Anxiety and depression Bilateral cataracts Family History Family History Other Mental health disorder Substance use disorder Surgical History Surgical History History of cataract surgery History of colonoscopy History of cervical spinal surgery History of lumbar surgery Social History Social History Household Members: Spouse and Family Housing: House Are you a primary tire care manager to a significant other at home: No Do you presently have visiting nurse or other home services: No Comment: can stand and pivot Patient Tobacco Use Status: Current everyday Tobacco user Tobacco use type: Cigarette Cigarette Packs Per Day: 1 Cigarettes Per Day: 20.0 Years Smoked: 1969 e-Cigarette/Vaping Use: Never Used Second Hand Smoke Exposure: No service: No Current occupational status: retired and disabled Cognitive needs: Yes (wheelchair) Hearing needs: No Vision needs: No Meds Allergies Allergy/AdvReac Type Severity Reaction Status Date / Time gabapentin Allergy Unknown confusion Verified 02/02/24 14:38 Active Medications: Current Medications Acetaminophen (Acetaminophen 325 Mg Tablet) 650 mg PO Q6H PRN PRN Reason: Pain, Mild (Pain Scale 1-3), fever or headache Calcium Carbonate (Calcium Carbonate 750 Mg Tab.Chew) 750 mg PO Q4H PRN PRN Reason: Heartburn Glucose (Glucose Gel 15 Gm Gel..Gram.) 15 gm PO Q15M PRN; Protocol PRN Reason: per Hypoglycemia Standing Ord. Heparin Sodium (Porcine) (Heparin Sodium,Porcine 5,000 Unit/Ml Vial) 5,000 unit SUBCUT Q12H [facility] Last Admin: 02/03/24 06:49 Dose: 5,000 unit Dextrose (D10) 250 mls @ 750 mls/hr IV Q15M PRN; Protocol PRN Reason: per Hypoglycemia Standing Ord. Piperacillin Sod/Tazobactam (Sod 2.25 gm/ Sodium Chloride) 50 mls @ 100 mls/hr IV Q6H [facility] Lactated Ringer's (Lr) 1,000 mls @ 75 mls/hr IVCONT .[id number] [id number] Insulin Human Lispro (Insulin Lispro 100 Unit/Ml 3 Ml Vial) 0 unit SUBCUT QIDACHS [facility]; Protocol Last Admin: 02/03/24 12:50 Dose: Not Given Levalbuterol HCl (Levalbuterol Hcl 1.25 Mg/3 Ml Vial.Neb) 1.25 mg INHALE Q4H PRN PRN Reason: Shortness of Breath/Wheezing Magnesium Hydroxide (Milk Of Magnesia 30 Ml Oral.Susp) 30 ml PO DAILY PRN PRN Reason: Constipation Melatonin (Melatonin 3 Mg Tablet) 6 mg PO BEDTIME PRN PRN Reason: Insomnia Last Admin: 02/02/24 22:26 Dose: 6 mg Omeprazole (Omeprazole 20 Mg Capsule.) 20 mg PO DAILY@0630 [facility] Last Admin: 02/03/24 06:49 Dose: 20 mg Oxycodone HCl (Oxycodone Hcl Immed Release 5 Mg Tablet) 5 mg PO Q6H PRN PRN Reason: Pain, Severe (Pain Scale 7-10) Last Admin: 02/03/24 12:02 Dose: 5 mg Sodium Chloride (0.9 % Sodium Chloride Flush 3 Ml Syringe) 3 ml IVFLUSH QSHIFT [facility] Last Admin: 02/03/24 10:23 Dose: Not Given Home Medications ?Medication ?Instructions ?Recorded ?Confirmed ?Last Taken ?Type acetaminophen 500 mg capsule 1,000 mg PO Q6H PRN Pain 02/02/24 02/02/24 Unknown History albuterol sulfate 90 mcg/actuation 2 puff inhalation Q4-6H PRN 02/02/24 02/02/24 Unknown History aerosol inhaler Shortness Of Breath Or Wheezing Physical Exam 2 Vital Signs: Vital Signs: Last Vital Signs Temp 98.9 F 02/03/24 15:28 Pulse 99 02/03/24 15:28 Resp 15 02/03/24 15:28 BP 171/101 H 02/03/24 15:28 Pulse Ox 99 02/03/24 15:28 O2 Del Method Nasal Cannula 02/03/24 15:28 O2 Flow Rate 2 02/03/24 15:28 BMI result Body Mass Index 29.4 Const: General: no acute distress and alert Nutritional Appearance: m alnourished and obese Orientation/consciousness: Other orientation findings ( oriented) HEENT: Head: Yes atraumatic Eyes: General: appearance normal, both eyes and all related structures S clerae: sclerae normal EOM: EOMs intact bilaterally Neck: Neck: Yes supple Lymphatic: no lymphadenopathy noted Resp: Effort & Inspection: normal respiratory effort and no use of accessory muscles Auscultation: crackles (Left basilar) Cardio: Rate: tachycardic Rhythm: regular rhythm Heart sounds: no gallops, no murmurs and no rubs Skin: General skin exam: other ( warm) Extrem: General: No clubbing, No cyanosis and No edema Results Laboratory Findings 02/02/24 14:48 02/03/24 04:20 ABG, PT/INR, D-dimer: PT/INR, D-dimer PT 13.3 SEC (11.1-13.3) 02/03/24 04:20 INR 1.1 (0.9-1.1) 02/03/24 04:20 Abnormal lab findings: Abnormal Labs 02/02/24 02/02/24 02/02/24 14:48 14:50 21:52 WBC 12.3 H RBC 4.28 L Hgb 11.6 L Hct 35.7 L Immature Gran % (Auto) 0.7 H Neut % (Auto) 83.2 H Lymph % (Auto) 8.5 L Lymph # (Auto) 1.0 L Abs Immat Gran (auto) 0.09 H Absolute Neuts (auto) 10.2 H Sodium Carbon Dioxide 19 L BUN 66 H Creatinine 4.42 H* POC Glucose 220 H Random Glucose 127 H Hemoglobin A1c % Alkaline Phosphatase 134 H B-Natriuretic Peptide 129 H Albumin 3.1 L 02/03/24 04:20 WBC RBC Hgb Hct Immature Gran % (Auto) Neut % (Auto) Lymph % (Auto) Lymph # (Auto) Abs Immat Gran (auto) Absolute Neuts (auto) Sodium 134 L Carbon Dioxide 19 L BUN 73 H Creatinine 4.66 H* POC Glucose Random Glucose Hemoglobin A1c % 6.3 H Alkaline Phosphatase B-Natriuretic Peptide Albumin Assessment and Plan (1) Weight loss: Status: Acute (2) Pleural effusion, left: Status: Acute (3) Postobstructive pneumonia: Status: Acute Plan Impression: 63-year-old gentleman active 40+ pack-year smoker admitted with progressive dyspnea, symptomatic pleural effusion, weight loss, and what appears to be postobstructive pneumonia. Now status post left-sided thoracentesis with drainage of 250 cc of fluid with pleural studies pending. Recommendations: Agree with empiric broad-spectrum antibiotics. If fluid cytology is negative and not a proven will likely require flexible bronchoscopy for evaluation of obstructive component. Procedures Date of Service Date of Service: 02/03/24
[2024-02-03 17:12] LABS: Glucose, Whole Blood 141 mg/dL (60-115)
[2024-02-03] MEDS: Piperacillin Sodium/Tazobactam 2.25 GM in 0.9 % Sodium Chloride 50 ML IV ×2 (17:42→21:05)
[2024-02-03] MEDS: Lactated Ringers 1,000 ML 75 ML IVCONT (17:44)
[2024-02-03 21:08] LABS: Glucose, Whole Blood 133 mg/dL (60-115)
[2024-02-04] MEDS: oxyCODONE HCl Immed Release 5 MG TABLET PO ×3 (01:49→18:07)
[2024-02-04 04:00] VITALS: BP 158/77; PULSE 95; RESP 16; TEMP 36.3; O2SAT 96
[2024-02-04] MEDS: Piperacillin Sodium/Tazobactam 2.25 GM in 0.9 % Sodium Chloride 50 ML IV ×4 (04:02→21:51)
[2024-02-04] MEDS: Lactated Ringers 1,000 ML 75 ML IVCONT ×2 (06:20→21:52)
[2024-02-04] MEDS: Omeprazole 20 MG CAPSULE.DR PO (06:20)
[2024-02-04] MEDS: Heparin Sodium,Porcine 5,000 UNIT/ML VIAL 5000 UNIT SUBCUT ×2 (06:20→18:05)
[2024-02-04 06:45] LABS: Anion Gap 16 (12-20); Blood Urea Nitrogen 66 mg/dL (9-16); Calcium 8.5 mg/dL (8.4-10.2); Carbon Dioxide 20 mmol/L (22-29); Chloride 102 mmol/L (96-108); Creatinine Clr Calc Pharmacy 21.7; Estimated Glomerular Filt Rate 13; Glucose Random 90 mg/dL (60-115); Potassium 4.9 mmol/L (3.3-5.1); Sodium 133 mmol/L (135-145)
[2024-02-04 08:00] VITALS: BP 165/77; PULSE 100; RESP 16; TEMP 36.3; O2SAT 97
[2024-02-04] MEDS: 0.9 % Sodium Chloride Flush 3 ML SYRINGE IVFLUSH ×2 (08:17→14:52)
[2024-02-04 08:22] LABS: Glucose, Whole Blood 98 mg/dL (60-115)
[2024-02-04 11:43] LABS: Glucose, Whole Blood 79 mg/dL (60-115)
--- NOTE | 2024-02-04 13:37 | HO.PM.IMPN ---
Subjective Subjective Date of Service: 02/04/24 Interval History: seen and examined this morning follow up for pleural effusion/respiratory failure reporting sob, still on o2 Review of Systems Review of Systems: Yes all other systems are reviewed and are negative Constitutional Constitutional: Denies chills and Denies fever(s) Cardiovascular Cardiovascular: Denies chest pain and Reports dyspnea Respiratory Respiratory: Reports dyspnea Physical Exam Vital Signs: Vital Signs: Last Vital Signs Temp 97.4 F 02/04/24 08:00 Pulse 100 02/04/24 08:00 Resp 16 02/04/24 08:00 BP 165/77 H 02/04/24 08:00 Pulse Ox 97 02/04/24 08:00 O2 Del Method Room Air 02/04/24 08:00 O2 Flow Rate 2 02/04/24 04:00 BMI result Body Mass Index 29.4 Const: General: cooperative, comfortable, alert and awake Orientation/consciousness: patient oriented x3 Resp: Effort & Inspection: normal respiratory effort, able to speak in complete sentences, no respiratory distress and no use of accessory muscles Cardio: Rate: regular rate GI: Inspection: No distended Palpation (GI): Soft to palpation and nontender Neuro: General: patient oriented x3 and CN's II-XI intact bilaterally Objective Data Active Medications Acetaminophen (Acetaminophen 325 Mg Tablet) 650 mg PO Q6H PRN PRN Reason: Pain, Mild (Pain Scale 1-3), fever or headache Calcium Carbonate (Calcium Carbonate 750 Mg Tab.Chew) 750 mg PO Q4H PRN PRN Reason: Heartburn Glucose (Glucose Gel 15 Gm Gel..Gram.) 15 gm PO Q15M PRN; Protocol PRN Reason: per Hypoglycemia Standing Ord. Heparin Sodium (Porcine) (Heparin Sodium,Porcine 5,000 Unit/Ml Vial) 5,000 unit SUBCUT Q12H [facility] Last Admin: 02/04/24 06:20 Dose: 5,000 unit Documented By: JONN Dextrose (D10) 250 mls @ 750 mls/hr IV Q15M PRN; Protocol PRN Reason: per Hypoglycemia Standing Ord. Piperacillin Sod/Tazobactam (Sod 2.25 gm/ Sodium Chloride) 50 mls @ 100 mls/hr IV Q6H [facility] Last Infusion: 02/04/24 09:12 Dose: Infused Documented By: SUNITA Lactated Ringer's (Lr) 1,000 mls @ 75 mls/hr IVCONT .[id number] [facility] Last Admin: 02/04/24 06:20 Dose: 75 mls/hr Documented By: JONN Insulin Human Lispro (Insulin Lispro 100 Unit/Ml 3 Ml Vial) 0 unit SUBCUT QIDACHS [facility]; Protocol Last Admin: 02/04/24 11:59 Dose: Not Given Documented By: SUNITA Non-Admin Reason: No Insulin Coverage Levalbuterol HCl (Levalbuterol Hcl 1.25 Mg/3 Ml Vial.Neb) 1.25 mg INHALE Q4H PRN PRN Reason: Shortness of Breath/Wheezing Magnesium Hydroxide (Milk Of Magnesia 30 Ml Oral.Susp) 30 ml PO DAILY PRN PRN Reason: Constipation Melatonin (Melatonin 3 Mg Tablet) 6 mg PO BEDTIME PRN PRN Reason: Insomnia Last Admin: 02/02/24 22:26 Dose: 6 mg Documented By: MEREDITH Omeprazole (Omeprazole 20 Mg Capsule.) 20 mg PO DAILY@0630 [facility] Last Admin: 02/04/24 06:20 Dose: 20 mg Documented By: JONN Oxycodone HCl (Oxycodone Hcl Immed Release 5 Mg Tablet) 5 mg PO Q6H PRN PRN Reason: Pain, Severe (Pain Scale 7-10) Last Admin: 02/04/24 08:16 Dose: 5 mg Documented By: SUNITA Sodium Chloride (0.9 % Sodium Chloride Flush 3 Ml Syringe) 3 ml IVFLUSH QSHIFT [facility] Last Admin: 02/04/24 08:17 Dose: 3 ml Documented By: SUNITA Labs 02/02/24 14:48 02/04/24 06:00 Labs: Laboratory Results - last 24 hr 02/03/24 02/03/24 02/03/24 14:05 17:07 20:50 Hold Purple Top Anion Gap Estim Creat Clear Calc Estimated GFR POC Glucose 141 H 133 H Random Glucose Calcium Pleural WBC 1.914 Pleural RBC < 0.002 Pleural Neutrophils 40 Pleural Lymphocytes 24 Pleural Monocytes 13 Pleural Other Cells 23 02/04/24 02/04/24 02/04/24 06:00 07:44 11:16 Hold Purple Top SEE NOTE Anion Gap 16 Estim Creat Clear Calc 21.7 Estimated GFR 13 POC Glucose 98 79 Random Glucose 90 Calcium 8.5 Pleural WBC Pleural RBC Pleural Neutrophils Pleural Lymphocytes Pleural Monocytes Pleural Other Cells Microbiology Microbiology Results: Microbiology 02/03/24 14:05 Gram Stain - Final Thoracentesis Fluid Anaerobic Culture - Preliminary No growth to date. Body Fluid Culture - Preliminary No growth to date. Assessment and Plan (1) Postobstructive pneumonia: Status: Acute (2) Acute kidney injury superimposed on stage 4 chronic kidney disease: Status: Acute Plan this is a 63/m with CKD4, HTN, diet controlled dm, wheel chair bound since a post laminectomy 4 years ago here with worsening SOB and found to have a large left side pleural effusin acute respiratory failure with hypoxia due to left sided pleural effusion and probable post obstructive pneumonia Thoracentesis done, fluid analysis pending, cytology pending started on zosyn if cytology negative may need bronchoscopy Still requiring supplemental oxygen, we will attempt to wean as tolerated MORENO on CKD- no significant change continue gentle IVF nephrology following DM--diet controlled, last Hgb A1C in December was 6.2 SSI, diabetic diet--sugars are < 100 Metabolic Acidosis--due to renal failure bicarb 20 improving HLD--no statin on med rec Probably undiagnosed copd, bronchodilators, no indication for steroid at this time Heparin for DVT: heparin Full code Requires ongoing inpatient stay for the management of symptomatic pleural effusion that need intervention and fluid analysis Quality Stroke Does the patient have a stroke diagnosis?: No VTE Prior VTE?: No VTE Risk Level:: Medical - moderate - high VTE Device Contraindication: Treatment Not Tolerated VTE Drug Contraindication: N/A - Med Ordered
[2024-02-04 14:13] LABS: Lactate Dehydrogenase 1030 U/L (118-273)
[2024-02-04 16:00] VITALS: BP 166/79; PULSE 98; RESP 16; TEMP 36.6; O2SAT 97
[2024-02-04] MEDS: Nicotine 14 MG PATCH.TD24 TRANSDERMA (16:53)
[2024-02-04 16:58] LABS: Glucose, Whole Blood 150 mg/dL (60-115)
[2024-02-04 17:28] LABS: Appearance Urine Clear; Color Urine Yellow; Glucose Urine UA 250 mg/dL (Negative); Leukocyte Esterase Urine Negative (Negative); Nitrite Urine Negative (Negative); PH 5.5 (5.0-9.0); UMIC TRIGGER UA YES; Urine Blood Small (1+) (Negative); Urine Ketones Negative (Negative); Urine Protein >=1000 (4+) mg/dL (Neg-Trace)
[2024-02-04 17:50] LABS: Creatinine Urine 43.64 mg/dL
[2024-02-04 17:58] LABS: Total Protein Urine Random 550 mg/dL (<12)
[2024-02-04 18:12] LABS: Bacteria Urine None Seen (None Seen); Hyaline Casts Urine 0-2 /LPF (0-2); RBC Urine 0-2 /HPF (0-2); Squamous Epithelial Cell Urine 0-2 /HPF (0-2); WBC Urine 0-5 /HPF (0-5)
[2024-02-04 19:54] VITALS: BP 168/79; PULSE 98; RESP 18; TEMP 36.3; O2SAT 99
[2024-02-04 20:52] LABS: Glucose, Whole Blood 215 mg/dL (60-115)
[2024-02-04] MEDS: Insulin Lispro 100 UNIT/ML 3 ML VIAL SUBCUT (21:50)
[2024-02-04 23:38] VITALS: BP 156/77; PULSE 85; RESP 18; TEMP 36.6; O2SAT 100
[2024-02-05] MEDS: oxyCODONE HCl Immed Release 5 MG TABLET PO ×3 (00:04→16:34)
[2024-02-05] MEDS: Piperacillin Sodium/Tazobactam 2.25 GM in 0.9 % Sodium Chloride 50 ML IV ×3 (04:01→16:32)
[2024-02-05] MEDS: 0.9 % Sodium Chloride Flush 3 ML SYRINGE IVFLUSH ×4 (04:05→21:32)
[2024-02-05] MEDS: Heparin Sodium,Porcine 5,000 UNIT/ML VIAL 5000 UNIT SUBCUT ×2 (05:56→16:39)
[2024-02-05] MEDS: Omeprazole 20 MG CAPSULE.DR PO (05:56)
[2024-02-05 06:46] LABS: Anion Gap 16 (12-20); Blood Urea Nitrogen 61 mg/dL (9-16); Calcium 8.5 mg/dL (8.4-10.2); Carbon Dioxide 19 mmol/L (22-29); Chloride 102 mmol/L (96-108); Creatinine Clr Calc Pharmacy 22.4; Estimated Glomerular Filt Rate 14; Glucose Random 96 mg/dL (60-115); Potassium 4.7 mmol/L (3.3-5.1); Sodium 132 mmol/L (135-145)
[2024-02-05 07:39] LABS: Glucose, Whole Blood 83 mg/dL (60-115)
[2024-02-05 07:52] VITALS: BP 160/84; PULSE 90; RESP 18; TEMP 36.4; O2SAT 98
[2024-02-05] MEDS: Nicotine 14 MG PATCH.TD24 TRANSDERMA (09:43)
[2024-02-05 11:31] LABS: Glucose, Whole Blood 168 mg/dL (60-115)
[2024-02-05] MEDS: guaiFENesin LA 600 MG TAB.ER.12H PO ×2 (11:57→21:32)
[2024-02-05] MEDS: Lactated Ringers 1,000 ML 75 ML IVCONT (11:57)
--- NOTE | 2024-02-05 12:24 | P.PNNP_ITS ---
Subjective Subjective Date of Service: 02/05/24 Interval history: Events noted No significant change in renal function Physical Exam 2 Vital Signs: Awake. Comfortable. Neck is supple. Mucosa moist. Lungs bilateral scattered rhonchi. Heart S1-S2 heard no gallop. Abdomen soft. Extremities no edema. No involuntary movements. No myoclonus. Objective Data Labs 02/02/24 14:48 02/05/24 06:21 Labs: Laboratory Results - last 24 hr 02/04/24 02/04/24 02/04/24 06:00 16:43 16:58 Sodium Potassium Chloride Carbon Dioxide Anion Gap BUN Creatinine Estim Creat Clear Calc Estimated GFR POC Glucose 150 H Random Glucose Calcium Lactate Dehydrogenase 1030 H Urine Color Yellow Urine Appearance Clear Urine pH 5.5 Ur Specific [place] 1.010 Urine Protein >=1000 (4+) H Urine Glucose (UA) 250 H Urine Ketones Negative Urine Blood Small (1+) H Urine Nitrite Negative Ur Leukocyte Esterase Negative Urine RBC 0-2 Urine WBC 0-5 Ur Squamous Epith Cells 0-2 Urine Bacteria None Seen Hyaline Casts 0-2 U Random Total Protein 550 H Ur Random Sodium 65.0 Urine Creatinine 43.64 02/04/24 02/05/24 02/05/24 20:38 06:21 07:14 Sodium 132 L Potassium 4.7 Chloride 102 Carbon Dioxide 19 L Anion Gap 16 BUN 61 H Creatinine 4.38 H* Estim Creat Clear Calc 22.4 Estimated GFR 14 POC Glucose 215 H 83 Random Glucose 96 Calcium 8.5 Lactate Dehydrogenase Urine Color Urine Appearance Urine pH Ur Specific [place] Urine Protein Urine Glucose (UA) Urine Ketones Urine Blood Urine Nitrite Ur Leukocyte Esterase Urine RBC Urine WBC Ur Squamous Epith Cells Urine Bacteria Hyaline Casts U Random Total Protein Ur Random Sodium Urine Creatinine 02/05/24 11:28 Sodium Potassium Chloride Carbon Dioxide Anion Gap BUN Creatinine Estim Creat Clear Calc Estimated GFR POC Glucose 168 H Random Glucose Calcium Lactate Dehydrogenase Urine Color Urine Appearance Urine pH Ur Specific [place] Urine Protein Urine Glucose (UA) Urine Ketones Urine Blood Urine Nitrite Ur Leukocyte Esterase Urine RBC Urine WBC Ur Squamous Epith Cells Urine Bacteria Hyaline Casts U Random Total Protein Ur Random Sodium Urine Creatinine Microbiology Microbiology Results: Microbiology 02/03/24 14:05 Thoracentesis Fluid Gram Stain - Final 02/03/24 14:05 Thoracentesis Fluid Anaerobic Culture - Preliminary No growth to date. 02/03/24 14:05 Thoracentesis Fluid Body Fluid Culture - Final No growth after 2 days Procedures Date of Service Date of Service: 02/05/24 Assessment & Plan Assessment and plan (1) Acute kidney injury superimposed on stage 4 chronic kidney disease: Status: Acute Plan MORENO superimposed on advanced CKD. CKD is most likely due to underlying diabetic nephropathy. Other nondiabetic causes should be considered. MORENO most likely due to hypoperfusion from volume depletion. He is significant edema in the past which has completely resolved. today he has no overt signs or symptoms of uremia. Recommendations Check urinalysis along with urine sodium, creatinine, protein. Check SPEP UPEP C3-C4 and ANCA. Avoid nephrotoxic agents including and NSAIDs. Cautious IV hydration for 1 more day and reassess. Keep intake more than output Watch urine output closely. Concur with other medical management. No absolute indication for dialysis yet. shall follow along with the team. Thank you Time Spent With Patient Time: Total time managing care of this patient today ____ minutes. Progress Note: Quality Stroke Does the patient have a stroke diagnosis?: No
--- NOTE | 2024-02-05 13:13 | MHC.CM.PN ---
EMR reviewed and per MD rounds, pt is not medically cleared for discharge due to ongoing management of symptomatic pleural effusion.
[2024-02-05 14:40] LABS: Albumin Pleural Fluid 1.4
--- NOTE | 2024-02-05 14:40 | P.PNIM_ITS ---
Subjective Subjective Date of Service: 02/05/24 Interval History: Seen and examined this morning Follow-up for pleural effusion, renal failure no sob Review of Systems Review of Systems: Yes all other systems are reviewed and are negative Constitutional Constitutional: Denies chills and Denies fever(s) Physical Exam 2 Vital Signs: Vital Signs: Last Vital Signs Temp 97.6 F 02/05/24 07:52 Pulse 90 02/05/24 07:52 Resp 18 02/05/24 07:52 BP 160/84 H 02/05/24 07:52 Pulse Ox 98 02/05/24 07:52 O2 Del Method Room Air 02/05/24 07:52 O2 Flow Rate 2 02/04/24 19:54 BMI result Body Mass Index 29.4 Const: General: cooperative, comfortable, alert and awake O rientation/consciousness: patient oriented x3 Resp: Effort & Inspection: normal respiratory effort, able to speak in complete sentences, no respiratory distress and no use of accessory muscles Cardio: Rate: regular rate GI: Inspection: No distended Palpation (GI): Soft to palpation and nontender Neuro: General: patient oriented x3 and CN's II-XI intact bilaterally Objective Data Active Medications Acetaminophen (Acetaminophen 325 Mg Tablet) 650 mg PO Q6H PRN PRN Reason: Pain, Mild (Pain Scale 1-3), fever or headache Calcium Carbonate (Calcium Carbonate 750 Mg Tab.Chew) 750 mg PO Q4H PRN PRN Reason: Heartburn Glucose (Glucose Gel 15 Gm Gel..Gram.) 15 gm PO Q15M PRN; Protocol PRN Reason: per Hypoglycemia Standing Ord. Guaifenesin (Guaifenesin La 600 Mg Tab.Er.12h) 600 mg PO BID [facility] Stop: 02/08/24 10:44 Last Admin: 02/05/24 11:57 Dose: 600 mg Documented By: MIRIAM Heparin Sodium (Porcine) (Heparin Sodium,Porcine 5,000 Unit/Ml Vial) 5,000 unit SUBCUT Q12H [facility] Last Admin: 02/05/24 05:56 Dose: 5,000 unit Documented By: JONN Dextrose (D10) 250 mls @ 750 mls/hr IV Q15M PRN; Protocol PRN Reason: per Hypoglycemia Standing Ord. Piperacillin Sod/Tazobactam (Sod 2.25 gm/ Sodium Chloride) 50 mls @ 100 mls/hr IV Q6H [facility] Last Infusion: 02/05/24 11:57 Dose: Infused Documented By: MIRIAM Lactated Ringer's (Lr) 1,000 mls @ 75 mls/hr IVCONT .[id number] [facility] Last Admin: 02/05/24 11:57 Dose: 75 mls/hr Documented By: MIRIAM Insulin Human Lispro (Insulin Lispro 100 Unit/Ml 3 Ml Vial) 0 unit SUBCUT QIDACHS [facility]; Protocol Last Admin: 02/05/24 10:14 Dose: Not Given Documented By: MIRIAM Non-Admin Reason: No Insulin Coverage Levalbuterol HCl (Levalbuterol Hcl 1.25 Mg/3 Ml Vial.Neb) 1.25 mg INHALE Q4H PRN PRN Reason: Shortness of Breath/Wheezing Magnesium Hydroxide (Milk Of Magnesia 30 Ml Oral.Susp) 30 ml PO DAILY PRN PRN Reason: Constipation Melatonin (Melatonin 3 Mg Tablet) 6 mg PO BEDTIME PRN PRN Reason: Insomnia Last Admin: 02/02/24 22:26 Dose: 6 mg Documented By: MEREDITH Nicotine (Nicotine 14 Mg Patch.Td24) 14 mg TRANSDERMA DAILY [facility] Last Admin: 02/05/24 09:43 Dose: 14 mg Documented By: MIRIAM Omeprazole (Omeprazole 20 Mg Capsule.Dr) 20 mg PO DAILY@0630 [facility] Last Admin: 02/05/24 05:56 Dose: 20 mg Documented By: JONN Oxycodone HCl (Oxycodone Hcl Immed Release 5 Mg Tablet) 5 mg PO Q6H PRN PRN Reason: Pain, Severe (Pain Scale 7-10) Last Admin: 02/05/24 06:20 Dose: 5 mg Documented By: JONN Sodium Chloride (0.9 % Sodium Chloride Flush 3 Ml Syringe) 3 ml IVFLUSH QSHIFT [facility] Last Admin: 02/05/24 11:55 Dose: 3 ml Documented By: MIRIAM Labs 02/02/24 14:48 02/05/24 06:21 Labs: Laboratory Results - last 24 hr 02/04/24 02/04/24 02/04/24 16:43 16:58 20:38 Anion Gap Estim Creat Clear Calc Estimated GFR POC Glucose 150 H 215 H Random Glucose Calcium Urine Color Yellow Urine Appearance Clear Urine pH 5.5 Ur Specific [place] 1.010 Urine Protein >=1000 (4+) H Urine Glucose (UA) 250 H Urine Ketones Negative Urine Blood Small (1+) H Urine Nitrite Negative Ur Leukocyte Esterase Negative Urine RBC 0-2 Urine WBC 0-5 Ur Squamous Epith Cells 0-2 Urine Bacteria None Seen Hyaline Casts 0-2 U Random Total Protein 550 H Ur Random Sodium 65.0 Urine Creatinine 43.64 02/05/24 02/05/24 02/05/24 06:21 07:14 11:28 Anion Gap 16 Estim Creat Clear Calc 22.4 Estimated GFR 14 POC Glucose 83 168 H Random Glucose 96 Calcium 8.5 Urine Color Urine Appearance Urine pH Ur Specific [place] Urine Protein Urine Glucose (UA) Urine Ketones Urine Blood Urine Nitrite Ur Leukocyte Esterase Urine RBC Urine WBC Ur Squamous Epith Cells Urine Bacteria Hyaline Casts U Random Total Protein Ur Random Sodium Urine Creatinine Microbiology Microbiology Results: Microbiology 02/03/24 14:05 Gram Stain - Final Thoracentesis Fluid Anaerobic Culture - Preliminary No growth to date. Body Fluid Culture - Final No growth after 2 days Assessment and Plan (1) Postobstructive pneumonia: Status: Acute (2) Acute kidney injury superimposed on stage 4 chronic kidney disease: Status: Acute Plan this is a 63/m with CKD4, HTN, diet controlled dm, wheel chair bound since a post laminectomy 4 years ago here with worsening SOB and found to have a large left side pleural effusin acute respiratory failure with hypoxia due to left sided pleural effusion and probable post obstructive pneumonia Thoracentesis done, fluid analysis -> exudate effusion, cytology pending continue IV zosyn started 02/02 if cytology negative may need bronchoscopy, possibly as outpatient weaned down to room air MORENO on CKD4- CKD most likely due to underlying diabetic nephropathy and MORENO due to hypoperfusion/volume depletion no significant change continue gentle IVF nephrology following - further work up in progress DM--diet controlled, last Hgb A1C in December was 6.2 SSI, diabetic diet--sugars are < 100 Metabolic Acidosis--due to renal failure staying stable HLD--no statin on med rec Probably undiagnosed copd, bronchodilators, no indication for steroid at this time Heparin for DVT: heparin Full code Requires ongoing inpatient stay for the management of symptomatic pleural effusion that need intervention and fluid analysis and close monitoring of renal function Quality Stroke Does the patient have a stroke diagnosis?: No VTE Prior VTE?: No VTE Risk Level:: Medical - moderate - high VTE Device Contraindication: Treatment Not Tolerated VTE Drug Contraindication: N/A - Med Ordered
[2024-02-05 14:41] LABS: Glucose Pleural Fluid 92
[2024-02-05 14:42] LABS: Amylase Pleural Fluid 41
[2024-02-05 14:43] LABS: LDH Pleural Fluid 165
[2024-02-05 14:44] LABS: Total Protein Pleural Fluid 2.4
[2024-02-05 16:00] VITALS: BP 189/83; PULSE 85; RESP 14; TEMP 36.3; O2SAT 98
[2024-02-05 16:16] LABS: Glucose, Whole Blood 151 mg/dL (60-115)
--- NOTE | 2024-02-05 16:25 | P.CDIM_ITS ---
PROVIDER RESPONSE TEXT: To clarify, the appropriate diagnosis supported by the clinical indicators: Acute QUERY TEXT: PHYSICIAN'S DOCUMENTATION REQUEST Date of Query: 02/05/2024 11:26 AM EDT Patient Name: Colton Fonseca Admit Date: 02/02/2024 Dear Steph Ojeda, A review of the medical record indicates additional documentation may be needed. Please review below and update the documentation accordingly. Clinical Indicators: per Hospitalist Progress Note 02/04/24: Metabolic Acidosis--due to renal failure bicarb 20 improving Clarify which of the following accurately represents the acuity of the Metabolic acidosis. Possible options might include: Acute Acute on chronic Compensated Chronic stable condition Remission Other (explain) Clinically unable to determine (explain) Thank you, Merari Haley RN Use of terms such as suspected, likely, concern for, or probable (associated with a specific diagnosi s that is being evaluated, monitored, or treated as if it exists) are acceptable and can be coded in the inpatient se tting, when documented at the time of discharge. Please use your independent medical judgment in providing your response. THIS QUERY IS PART OF THE PERMANENT MEDICAL RECORD
[2024-02-05 20:00] VITALS: BP 165/74; PULSE 73; RESP 16; TEMP 36; O2SAT 96
[2024-02-05 21:44] LABS: Glucose, Whole Blood 173 mg/dL (60-115)
[2024-02-05] MEDS: Insulin Lispro 100 UNIT/ML 3 ML VIAL SUBCUT (21:44)
[2024-02-06] MEDS: Piperacillin Sodium/Tazobactam 2.25 GM in 0.9 % Sodium Chloride 50 ML IV ×3 (00:05→11:54)
[2024-02-06] MEDS: oxyCODONE HCl Immed Release 5 MG TABLET PO ×2 (00:40→08:29)
[2024-02-06 04:00] VITALS: BP 118/66; PULSE 88; RESP 16; TEMP 36; O2SAT 96
[2024-02-06] MEDS: Heparin Sodium,Porcine 5,000 UNIT/ML VIAL 5000 UNIT SUBCUT (05:57)
[2024-02-06] MEDS: Omeprazole 20 MG CAPSULE.DR PO (05:58)
[2024-02-06 07:16] VITALS: BP 173/93; PULSE 87; RESP 18; TEMP 37.1; O2SAT 96
[2024-02-06 07:24] LABS: Glucose, Whole Blood 114 mg/dL (60-115)
[2024-02-06] MEDS: guaiFENesin LA 600 MG TAB.ER.12H PO (08:29)
[2024-02-06] MEDS: Nicotine 14 MG PATCH.TD24 TRANSDERMA (08:29)
[2024-02-06] MEDS: 0.9 % Sodium Chloride Flush 3 ML SYRINGE IVFLUSH (08:30)
[2024-02-06 09:19] VITALS: BP 158/82
[2024-02-06 09:55] LABS: Anion Gap 16 (12-20); Blood Urea Nitrogen 59 mg/dL (9-16); Calcium 8.1 mg/dL (8.4-10.2); Carbon Dioxide 19 mmol/L (22-29); Chloride 103 mmol/L (96-108); Estimated Glomerular Filt Rate 13; Glucose Random 128 mg/dL (60-115); Potassium 4.7 mmol/L (3.3-5.1); Sodium 133 mmol/L (135-145)
[2024-02-06 11:19] LABS: Glucose, Whole Blood 159 mg/dL (60-115)
[2024-02-06] MEDS: Insulin Lispro 100 UNIT/ML 3 ML VIAL SUBCUT (11:54)
--- NOTE | 2024-02-06 12:28 | PM.DS ---
DS: Providers Provider Date of Service: 02/06/24 Date of admission: 02/02/24 17:59 Date of discharge: 02/06/24 Primary care physician: Jannette Ceja MD Consults: 02/02/24 17:29 Consult to Nephrology Routine Consulting Provider: [facility] Reason for consultation: MORENO on CKD Has provider been notified: Yes 02/03/24 16:21 Consult to Pulmonology Routine Consulting Provider: [facility] Reason for consultation: luculated effusion Has provider been notified: Yes Attending physician on discharge: Bryan Forrester Discharging clinician: Steph Ojeda DS: Diagnosis Discharge Diagnosis (1) Postobstructive pneumonia: Status: Acute (2) Acute kidney injury superimposed on stage 4 chronic kidney disease: Status: Acute (3) Pleural effusion, left: Status: Acute DS: Summary Hospital Course Hospital Course: From H&P on the day of admission 63-year-old male smoker, wheelchair-bound with a history of post-laminectomy syndrome, diet-controlled diabetes mellitus, chronic kidney disease stage 4, hypercholesterolemia, and hypertension. He presents to the ED with shortness of breath that has been ongoing for at least 1 week and has worsened over the last 3-4 days. It is worse with minimal effort and more pronounced when lying on his left side. No PND, no orthopnea, no leg edema, BNP 129; has some cough with clear phlegm. CXR and non-contrast chest CT show a moderate to large left-sided pleural effusion. RSV, covid, flu negative. Further imaging is advised with a contrast study; however, he has worsening kidney disease on top of his baseline CKD. He is due to see a tennis camp instructor soon. He is an active smoker with no diagnosis of COPD. Given bronchodilators in the ED, he has no wheezing acute respiratory failure with hypoxia due to left sided pleural effusion and probable post obstructive pneumonia Thoracentesis done, fluid analysis -> exudate effusion, cytology pending treated with IV zosyn started 02/02 if cytology negative may need bronchoscopy, as an outpatient weaned down to room air, no shortness of breath will need outpatient follow up with pulmonology MORENO on CKD4- CKD most likely due to underlying diabetic nephropathy and MORENO due to hypoperfusion/volume depletion no significant change with IVF. This likely represents new renal baseline. Seen by Nephrology during hospital stay, we will need outpatient follow-up in the clinic Time Attestation Discharge Coordination Time (in mins): 32 Quality: Safe Use of Opioids Does Pt have an Active Cancer Diagnosis on the Problem List?: No Quality: Stroke Does the patient have a stroke diagnosis?: No Physical Exam Vital Signs: Vital Signs: Last Vital Signs Temp 98.7 F 02/06/24 07:16 Pulse 87 02/06/24 07:16 Resp 18 02/06/24 07:16 BP 158/82 H 02/06/24 09:19 Pulse Ox 96 02/06/24 07:16 O2 Del Method Room Air 02/06/24 07:16 O2 Flow Rate 2 02/06/24 04:00 BMI result Body Mass Index 29.4 Const: General: cooperative, comfortable, alert and awake Orientation/consciousness: patient oriented x3 Resp: Other: diminished breath sounds Effort & Inspection: normal respiratory effort, able to speak in complete sentences, no respiratory distress and no use of accessory muscles Cardio: Rate: regular rate GI: Inspection: No distended Palpation (GI): Soft to palpation and nontender Neuro: General: patient oriented x3 and CN's II-XI intact bilaterally DS: Data Data Completed and Pending Pending studies at discharge: Pending at discharge 02/02/24 07:31 Cytology [PTH] Routine Labs on day of discharge: Laboratory Results - last 24 hr 02/03/24 02/05/24 02/05/24 14:05 16:11 21:40 Sodium Potassium Chloride Carbon Dioxide Anion Gap BUN Creatinine Estim Creat Clear Calc Estimated GFR POC Glucose 151 H 173 H Random Glucose Calcium Pleural Total Protein 2.4 Pleural Albumin 1.4 Pleural LDH 165 Pleural Glucose 92 Pleural Amylase 41 02/06/24 02/06/24 02/06/24 07:21 08:58 11:06 Sodium 133 L Potassium 4.7 Chloride 103 Carbon Dioxide 19 L Anion Gap 16 BUN 59 H Creatinine 4.47 H* Estim Creat Clear Calc 22.0 Estimated GFR 13 POC Glucose 114 159 H Random Glucose 128 H Calcium 8.1 L Pleural Total Protein Pleural Albumin Pleural LDH Pleural Glucose Pleural Amylase Preliminary micro results at discharge 02/03/24 14:05 Anaerobic Culture - Preliminary Thoracentesis Fluid No growth to date. Discharge Plan Discharge Anticipated Discharge Date/Time: 02/06/24 12:34 Patient Disposition: Home, Self-Care Discharge Diagnosis: CKD left pleural effusion postobstructive pneumonia Referrals: Riki Christensen MD [Physician] - 1 Week Yuri Juares MD [Physician] - 1 Week Po,Jannette Mcgarry MD [Primary Care Provider] - 1 Week Discharge Medications: New nicotine 14 mg/24 hr Patch 24 Hour 14 mg transdermal DAILY Qty: 28 0RF amoxicillin-pot clavulanate 875-125 mg tablet 1 tab PO Q12H 6 Days Qty: 12 0RF oxycodone 5 mg tablet 5 mg PO BID PRN (Reason: severe pain (scale score 7-10)) Qty: 10 0RF Rx Instructions: Partial Fill upon patient request. Continued (DME) lancets [FreeStyle Lancets] 28 gauge misc See Rx Instructions .MEDSUPPLY Qty: 100 2RF Rx Instructions: test daily (DME) FreeStyle Lite Strips Strip See Rx Instructions .MEDSUPPLY Qty: 100 2RF Rx Instructions: test daily omeprazole 20 mg capsule,delayed release(DR/EC) 20 mg PO DAILY Qty: 30 0RF albuterol sulfate 90 mcg/actuation HFA aerosol inhaler 2 puff INHALATION Q4-6H PRN (Reason: Shortness Of Breath Or Wheezing) acetaminophen 500 mg Capsule 1,000 mg PO Q6H PRN (Reason: Pain) (DME) blood-glucose meter [FreeStyle Lite Meter] Kit See Rx Instructions .MEDSUPPLY Qty: 1 0RF Rx Instructions: test daily Discharge Orders: Discharge Order (Routine); Ordered 02/06/24 Ordered By: Steph Ojeda Activity on Discharge: As tolerated Stand Alone Forms: Patient Portal Discharge page Print Language: [place] Care Plan Goals: See below Health Concerns: Left-sided pleural effusion/postobstructive pneumonia Progression of CKD Plan of Treatment: Complete course of antibiotics for pneumonia will need outpatient follow-up with pulmonology for results of cytology from fluid analysis and possible bronchoscopy We will need outpatient follow-up with Nephrology for close monitoring of renal function Assessment: See discharge summary
[2024-02-08 08:48] LABS: Complement C3 104 mg/dL (82-185)
[2024-02-08 12:39] LABS: Anti Glomerular Basement Memb <1.0 AI; Myeloperoxidase Antibody <1.0 AI; Proteinase 3 PR3 Antibodies <1.0 AI
[2024-02-09 21:49] LABS: Prot Elec - Albumin 2.2 g/dL (3.8-4.8); Prot Elec - Alpha1 0.5 g/dL (0.2-0.3); Prot Elec - Alpha2 0.8 g/dL (0.5-0.9); Prot Elec - Beta 1 0.4 g/dL (0.4-0.6); Prot Elec - Beta 2 0.4 g/dL (0.2-0.5); Prot Elec - Gamma 1.2 g/dL (0.8-1.7); Prot Elec - Total Protein 5.5 g/dL (6.1-8.1)
== END 2024-02-06 14:00 | disposition home or self-care (01) | DRG 193 ==
LOC: HO.ED 16:51 → HO.EDOVER 18:35 → HO.IMC 02-03 14:55
PROVIDERS: Internal Medicine Hypertension Specialist; Nurse Practitioner Family; Physician Assistant; Admitting Provider Internal Medicine; Emergency Provider Emergency Medicine; PCP Internal Medicine; Visit Provider Physician Assistant Medical
DX: J18.9 Pneumonia, unspecified organism (principal); J96.01 Acute respiratory failure with hypoxia; N17.9 Acute kidney failure, unspecified; N18.4 Chronic kidney disease, stage 4 (severe); E87.21 Acute metabolic acidosis; J44.0 Chronic obstructive pulmonary disease with (acute) lower respiratory infection; J91.8 Pleural effusion in other conditions classified elsewhere; I12.9 Hypertensive chronic kidney disease with stage 1 through stage 4 chronic kidney disease, or unspecified chronic kidney disease; E11.22 Type 2 diabetes mellitus with diabetic chronic kidney disease; M96.1 Postlaminectomy syndrome, not elsewhere classified; E78.00 Pure hypercholesterolemia, unspecified; F17.210 Nicotine dependence, cigarettes, uncomplicated; Z71.6 Tobacco abuse counseling; Z99.3 Dependence on wheelchair; Z20.822 Contact with and (suspected) exposure to COVID-19; Z79.899 Other long term (current) drug therapy
CPT/HCPCS: 0241U; 32555; 36415; 71045; 71046; 71250; 80048; 80053; 81001; 82042; 82150; 82570; 82945; 82947; 83036; 83520; 83615; 83690; 83880; 83986; 84156; 84157; 84165; 84300; 85025; 85610; 86021; 86160; 87070; 87073; 87205; 88112; 88341; 88342; 89051; 93005; 94640; 99285; J1644; J2543; J7120

== ENCOUNTER → 2024-02-02 14:35 | Outpatient (BNV) | payer MEDICARE, SELFPAY | PROVIDERS: Admitting Provider Internal Medicine; Emergency Provider Emergency Medicine; PCP Internal Medicine; Visit Provider Internal Medicine Cardiovascular Disease | DX: R94.31 Abnormal electrocardiogram [ECG] [EKG] (principal) | CPT/HCPCS: 93010 ==

== ENCOUNTER 2024-02-02 17:59 | Outpatient (BNV) | payer MEDICARE, SELFPAY | END 2024-02-03 08:00 | PROVIDERS: Admitting Provider Internal Medicine; Emergency Provider Emergency Medicine; PCP Internal Medicine; Visit Provider Student in an Organized Health Care Education/Training Program | DX: J90 Pleural effusion, not elsewhere classified (principal) | CPT/HCPCS: 32555 ==

== ENCOUNTER → 2024-02-02 17:59 | Outpatient (BNV) | payer MEDICARE, SELFPAY | PROVIDERS: Admitting Provider Internal Medicine; Emergency Provider Emergency Medicine; PCP Internal Medicine; Visit Provider Internal Medicine Pulmonary Disease | DX: J90 Pleural effusion, not elsewhere classified (principal); J18.9 Pneumonia, unspecified organism; R63.4 Abnormal weight loss | CPT/HCPCS: 99222 ==

== ENCOUNTER → 2024-02-02 17:59 | Outpatient (BNV) | payer MEDICARE, SELFPAY | PROVIDERS: Admitting Provider Internal Medicine; Emergency Provider Emergency Medicine; PCP Internal Medicine; Visit Provider Internal Medicine | DX: J18.9 Pneumonia, unspecified organism (principal); N17.9 Acute kidney failure, unspecified; N18.4 Chronic kidney disease, stage 4 (severe); J90 Pleural effusion, not elsewhere classified | CPT/HCPCS: 99223; 99232; 99239 ==

== ENCOUNTER → 2024-02-02 17:59 | Outpatient (BNV) | payer MEDICARE, SELFPAY | PROVIDERS: Admitting Provider Internal Medicine; Emergency Provider Emergency Medicine; PCP Internal Medicine; Visit Provider Internal Medicine Hypertension Specialist | DX: N17.9 Acute kidney failure, unspecified (principal); E11.22 Type 2 diabetes mellitus with diabetic chronic kidney disease; N18.4 Chronic kidney disease, stage 4 (severe) | CPT/HCPCS: 99223; 99232 ==